=== PATIENT | male | born 1945 | race Caucasian/White ===

== ENCOUNTER 2023-03-29 12:55 | Outpatient (OUT) | payer MEDICARE, SELFPAY ==
--- NOTE | 2023-03-29 12:57 | VEIN_ITS ---
Patient Name: JASON PEARSON MR#: [id number] : 1945 Exam Date: 03/29/2023 Ordering Doctor: DR MARV CLANCY D.P.M. RADIOLOGY REPORT PROCEDURE: [facility] - OFFICE VISIT INITIAL COMPARISON: None. PROGRESS NOTES: [age] year old male who presents with a 20 year history of dilated bulging veins, leg swelling, muscle cramping, skin discoloration, and chronic lower left leg wound. The patient's left leg symptoms are worse than the right. There has been a progression of symptoms over time. This increases with prolonged leg dependency. The patient describes an improvement with rest, elevation, exercise, support stockings. The patient denies any signs and symptoms to suggest arterial ischemia. The patient describes a family history varicose veins. The patient has drinking and smoking history of: no alcohol consumption or recent tobacco use. Patient has a past medical history significant for hypertension. The patient denies a history of deep venous thrombus or pulmonary embolus. See separate history and physical for medication list. Prior vein stripping of proximal left great saphenous vein. Current use of compression stockings. After review of nurse notes, history and physical exam I discussed at length the pathophysiology of venous hypertension and possible treatments, therapies and strategies available. We discussed at length the importance of elevating the lower extremities above the level of the heart, increased physical activity and compression stocking use. Ultrasound venous reflux study performed today was discussed at length with the patient. The report demonstrates abnormally dilated and incompetent right great saphenous, right small saphenous, and left small saphenous veins. Numerous large branch saphenous varicosities arising from the above veins as well as the remaining mid and lower segment of the left great saphenous vein (prior vein stripping of proximal left great saphenous vein). Large incompetent drop press hand vein within lower left leg adjacent patient's chronic recently healed wound. Additional dilated and incompetent drop press hand vein within proximal left thigh giving rise to a large varicosity. PHYSICAL EXAM: The right leg demonstrates multiple large varicosities, a few spider veins, no ulceration, moderate edema, moderate skin discoloration. The left leg demonstrates multiple large varicosities, a few spider veins, recently healed chronic ulceration, moderate edema, moderate skin discoloration. Both thighs, legs and feet were symmetrically warm to the touch. Good posterior tibial and dorsalis pedis pulses were present bilaterally. VEIN/VC Facility EST Comprehensive IMPRESSION: 1. Bilateral lower extremity venous insufficiency 2. Bilateral lower extremity varicose veins 3. Bilateral lower extremity subcutaneous edema 4. No flow significant arterial disease 5. CEAP: C5, EC, AP, AR PLAN: 1. Continued use of compression stockings 2. Elevated legs and increased physical activity symptomatic relief 3. Endovenous laser ablation of right great saphenous, left small saphenous, and right small saphenous veins. 4. Endovenous laser ablation of lower left leg drop press hand vein(s) adjacent the chronic wound. 5. Microfoam chemical ablation of numerous large branch saphenous varicosities bilaterally including the remainder of the left great saphenous vein and its large branches. Nurse notes, history and physical were reviewed and confirmed, see attached forms. The nurse was present throughout the physical exam and consultation Dictated by: Moe Avery M.D. on 03/29/2023 at 14:53 Approved by: Moe Avery M.D. on 03/29/2023 at 15:00
--- NOTE | 2023-03-29 12:58 | VEIN_ITS ---
Patient Name: JASON PEARSON MR#: [id number] : 1945 Exam Date: 03/29/2023 Ordering Doctor: DR MARV CLANCY D.P.M. RADIOLOGY REPORT PROCEDURE: VC EXT VENOUS REFLUX CHINO LMTD COMPARISON: None. INDICATIONS: I83.813 Painful varicose veins of bilat lower extremities TECHNIQUE: Duplex imaging of the lower extremity to assess the deep and superficial venous system for the presence of deep or superficial venous incompetence and to document the location and severity of disease. The study includes evaluation of the great saphenous vein (GSV), anterior accessory saphenous vein (AASV) and small saphenous vein (SSV). Patient scanned in reverse Trendelenburg and standing. FINDINGS: RIGHT LOWER EXTREMITY: Saphenofemoral Junction Reflux: Yes 10.0mm 3.2 sec GSV: Diam (mm) Reflux/ Time (sec) Proximal Thigh 6.7 Yes 1.7 Mid Thigh 6.0 Yes 3.2 Distal Thigh 5.8 Yes 3.1 Prox Calf 3.3 Yes 1.0 Mid Calf 3.4 Yes 0.6 Saphenopopliteal Junction Reflux: 5.6mm Yes 2.9 SSV: Proximal Calf 5.6 Yes 1.9 Mid Calf 4.5 Yes 1.1 AASV: Proximal Thigh 2.9 No Mid Thigh 3.5 No Distal Thigh Thrombi: No acute or chronic thrombus visualized Compressibility: Normal Flow: Normal Preforator: Dist/med calf 3.0mm with 0s reflux. Tech Note: Incompetent GSV and SSV. Patent varicose vein prox/med calf 3.4mm with 1.1s reflux. Patent varicose vein mid/med thigh 3.1mm with 0.9s reflux. Patent varicose vein mid/med calf 3.0mm with 0s reflux. LEFT LOWER EXTREMITY: Saphenofemoral Junction Reflux: mm sec GSV: Diam (mm) Reflux/Time (sec) Proximal Thigh N/A Mid Thigh N/A Distal Thigh N/A Prox Calf 4.8 Yes 2.3 Mid Calf 4.9 Yes 1.6 Saphenopopliteal Junction Relux: 5.5 mm Yes 0.9 SSV: Proximal Calf 5.5 Yes 1.6 Mid Calf 3.8 No AASV: Proximal Thigh 3.3 No Mid Thigh 2.6 Distal Thigh Thrombi: No acute or chronic thrombus visualized Compressibility: Normal Flow: Reflux visualized CFV and FV Book Sorter: Dist/med calf 5.8mm with 1.8s reflux. Mid/med calf 3.3mm with 2.8s reflux. Mid/med thigh off of FV 5.0mm with 1.7s reflux. Tech Note: Incompetent GSV and SSV. GSV was previously stripped from groin to distal thigh. Patent varicose vein off of mid/med thigh perforators 8.2mm with 1.3s reflux. Patent varicose vein medial knee 7.3mm with 1.4s reflux. Patent prox/med calf 6.0mm with 0.8s reflux. CONCLUSION: 1. Abnormally dilated and incompetent right great saphenous, right small saphenous, and left small saphenous veins. 2. Large amount of markedly dilated an incompetent branch saphenous varicosities arising from the above veins as well as arising from the left great saphenous vein distal to the site of prior vein stripping within the proximal thigh. 3. Large, incompetent associate media director veins within distal left lower extremity adjacent the patient's recently healed chronic wound. Additional large incompetent associate media director vein within proximal left thigh giving rise to a large varicosity. Dictated by: Moe Avery M.D. on 03/29/2023 at 14:23 Approved by: Moe Avery M.D. on 03/29/2023 at 14:52
== END 2023-03-29 12:56 | disposition home or self-care (01) ==
PROVIDERS: PCP Podiatrist Foot & Ankle Surgery; Visit Provider Podiatrist Foot & Ankle Surgery
DX: I83.813 Varicose veins of bilateral lower extremities with pain (principal)
CPT/HCPCS: 93970; G0463

== ENCOUNTER 2023-06-14 12:25 | Outpatient (OUT) | payer MEDICARE, SELFPAY ==
--- OUTSIDE RECORDS SUMMARY | 2023-06-14 12:28 | XMS_ITS | CCD ---
Author Name Unknown Address [address] [place] [address] Organization [facility] Care Team Providers Care Machine Bobbin Winder Name Role Phone Sharonda Bah Primary Care Physician Dolvidhya, Mickey Gutiérrez Referring Unavailable Dolce, Mickey D Attending Unavailable Dolce, Mickey D Attending Unavailable Dolce, Mickey D Attending Unavailable Dolce, Mickey D Admitting Unavailable Dolce, Mickey Gutiérrez Referring Unavailable Dolce, Mickey Gutiérrez Attending Unavailable Dolce, Mickey Gutiérrez Attending Unavailable Dolce, Mickey D Attending Unavailable Dolce, Mickey D Attending Unavailable Dolce, Mickey D Attending Unavailable Dolce, Mickey D Attending Unavailable Dolce, Mickey Brock Attending Unavailable ZAHLERMARY Attending Unavailable Medications Current Medications Medication Drug Class(es) Dates Sig (Normalized) Sig (Original) Acetaminophen / oxyCODONE (16 sources) Opioid Agonist Start: 06-11-2020 Percocet 325 mg-5 mg Tab 1 tab(s), Oral, q6hr Pain 4-7, Refill(s) 0 Start Date: 06/11/20 Status: Ordered Start: 06-11-2020 Percocet 325 m g-5 mg Tab 2 tab(s), Oral, q6hr Pain 4-7, Refill(s) 0 Start Date: 06/11/20 Status: Ordered Start: 06-11-2020 Percocet 325 m g-5 mg Tab 1 tab(s), Oral, q6hr Pain 4-7, Refill(s) 0 Start Date: 06/11/20 Status: Ordered Aspir 81 (8 sources) Start: 08-01-2016 take 81 mg by mouth once daily Aspir 81 81 mg, Oral, Daily, Refills(s) 0 Start Date: 08/01/16 Status: Ordered lisinopril 20 mg oral tablet (8 sources) Angiotensin Converting Enzyme Inhibitor Start: 12-24-2011 take 20 mg by mouth once daily lisinopril 20 mg, Oral, Daily, Refills(s) 0, High blood pressure Start Date: 12/24/11 Status: Ordered Problems Active Problems Problem Classification Problem Date Documented Da te Episodic/Chronic Abdominal hernia (8 sources) Inguinal hernia 07-13-2013 Episodic Essential hypertension (8 sources) Hypertensive disorder 01-12-2013 Chronic Varicose veins of lower extremity (8 sources) Varicose veins of lower extremity 04-04-2013 Episodic Comment on above: left Past or Other Problems Problem Classification Problem Date Documented Da te Episodic/Chronic Unclassified (1 source) Exposure to 2019 novel coronavirus; Translations: [Contact with and (suspected) exposure to COVID19] Results Test Name Value Interpretation Reference Range Facility Outside Recordson 03-08-2023 Outside Records [id number] 288#1.00TIFF [facility] Nursing Note - Woundon 01-14 Nursing Note - Wound [id number] [id number] 407#2.00CD:127 [facility] Consent for Treatmenton 12-31 Consent for Treatment [id number] 3 [id number] DB#1.00CD:127 [facility] Multi-Wound Charton 01-12-20 23 Multi-Wound Chart [id number] 334#1.00CD:127 [facility] Nursing Assessment - Woundon 01-11-2023 Nursing Assessment - Wound [id number] [id number] 744#1.00CD:127 [facility] Physician Orderon 01-11-2023 Physician Order [id number] 140#1.00CD:127 [facility] Progress Note - Woundon 12-31 Progress Note - Wound 170.71.121.117.202 3 [id number] 251#1.00CD:127 [facility] Consent for Procedure/Surger yon 01-04-2023 Consent for Procedure/Surgery 149.45.122.15. [id number] 903#1.00CD:127 [facility] Consent for Treatmenton Consent for Treatment [id number] 3 [id number] B4#1.00CD:127 [facility] Physician Orderon 01-04-2023 Physician Order [id number] 539#1.00CD:127 [facility] Progress Note - Woundon Progress Note - Wound 170.71.121.117.202 3 [id number] 143#1.00CD:127 [facility] Progress Note - Woundon 12-02 Progress Note - Wound 170.71.121.117.202 3 [id number] 392#2.00CD:127 [facility] Consent for Treatmenton 12-01 Consent for Treatment [id number] 3 [id number] 55#1.00CD:127 [facility] Multi-Wound Charton 12-29-19 Multi-Wound Chart [id number] 285#1.00CD:127 [facility] Nursing Assessment - Woundon 12-28-2022 Nursing Assessment - Wound 170.71.924.951.8465 [id number] 632#1.00CD:127 [facility] Nursing Note - Woundon 12-28 Nursing Note - Wound 170.71.689.350.2007 [id number] 281#1.00CD:127 [facility] Physician Orderon 12-28-2022 Physician Order [id number] 330#1.00CD:127 [facility] Procedure - Woundon 12-29-19 23 Procedure - Wound [id number] [id number] 179#1.00CD:127 [facility] Consent for Treatmenton 12-01 Consent for Treatment [id number] 3 [id number] 4C#1.00CD:127 [facility] Multi-Wound Charton 12-22-19 Multi-Wound Chart [id number] [id number] 612#1.00CD:127 [facility] Nursing Assessment - Woundon 12-21-2022 Nursing Assessment - Wound 170.71.354.784.6992 [id number] 169#1.00CD:127 [facility] Nursing Note - Woundon 12-21 Nursing Note - Wound 170.71.540.794.0170 [id number] 553#1.00CD:127 [facility] Physician Orderon 12-21-2022 Physician Order [id number] 579#1.00CD:127 [facility] Procedure - Woundon 12-22-19 Procedure - Wound 170.71.769.489.7124 [id number] 549#1.00CD:127 [facility] Progress Note - Woundon 12-01 Progress Note - Wound 170.71.121.117.202 3 [id number] 894#1.00CD:127 [facility] Procedure - Woundon 12-18-19 Procedure - Wound 170.71.993.043.0877 [id number] 901#2.00CD:127 [facility] Nursing Note - Woundon 12-15 Nursing Note - Wound 170.71.915.026.3051 [id number] 779#2.00CD:127 [facility] Consent for Treatmenton 11-30 Consent for Treatment 159.140.128.34.202 3 [id number] 5A#1.00CD:127 [facility] Multi-Wound Charton 12-15-19 Multi-Wound Chart 170.71.939.860.8318 [id number] 645#1.00CD:127 [facility] Nursing Assessment - Woundon 12-14-2022 Nursing Assessment - Wound 170.71.918.993.7777 [id number] 942#1.00CD:127 [facility] Consent for Procedure/Surger yon 12-07-2022 Consent for Procedure/Surgery 149.45.122.15. [id number] 860#1.00CD:127 [facility] Consent for Treatmenton Consent for Treatment 159.140.128.34.202 3 [id number] D1#1.00CD:127 [facility] Multi-Wound Charton 12-08-19 Multi-Wound Chart 170.71.762.221.8544 [id number] 913#1.00CD:127 [facility] Nursing Assessment - Woundon 12-07-2022 Nursing Assessment - Wound 170.71.504.186.1646 [id number] 164#1.00CD:127 [facility] Nursing Note - Woundon 12-07 Nursing Note - Wound 170.71.500.774.3421 [id number] 674#1.00CD:127 [facility] Physician Orderon 12-07-2022 Physician Order [id number] 814#1.00CD:127 [facility] Procedure - Woundon 12-08-19 Procedure - Wound 170.71.775.846.5293 [id number] 670#1.00CD:127 [facility] Progress Note - Woundon Progress Note - Wound 170.71.121.117.202 3 [id number] 522#1.00CD:127 [facility] Multi-Wound Charton 12-01-19 Multi-Wound Chart 170.71.088.823.2696 [id number] 416#1.00CD:127 [facility] Nursing Note - Woundon 11-30 Nursing Note - Wound 170.71.723.280.7729 [id number] 741#1.00CD:127 [facility] Consent for Treatmenton -3 Consent for Treatment 159.140.128.36.202 3 [id number] 3B#1.00CD:127 [facility] Insurance Correspondenceon 0 11-29-2022 Insurance Correspondence [id number] 803#1.00CD:127 [facility] Physician Orderon 11-29-2022 Physician Order [id number] 461#1.00CD:127 [facility] Procedure - Woundon 11-30-19 Procedure - Wound 170.71.991.793.5369 [id number] 212#1.00CD:127 [facility] Nursing Note - Woundon 11-24 Nursing Note - Wound 170.71.312.241.4110 [id number] 966#2.00CD:127 [facility] Consent for Treatmenton 10-31 Consent for Treatment 159.140.128.34.202 3 [id number] F7#1.00CD:127 [facility] Multi-Wound Charton 11-24-19 Multi-Wound Chart 170.71.850.049.9137 [id number] 420#1.00CD:127 [facility] Nursing Assessment - Woundon 11-23-2022 Nursing Assessment - Wound 170.71.308.346.9341 [id number] 442#1.00CD:127 [facility] Nursing Note - Woundon 11-23 Nursing Note - Wound 170.71.955.307.5135 [id number] 795#1.00CD:127 [facility] Physician Orderon 11-23-2022 Physician Order [id number] 762#1.00CD:127 [facility] Procedure - Woundon 11-24-19 Procedure - Wound 170.71.905.798.6986 [id number] 707#1.00CD:127 [facility] Progress Note - Woundon 10-31 Progress Note - Wound 170.71.121.117.202 3 [id number] 390#1.00CD:127 [facility] Consent for Procedure/Surger yon 11-16-2022 Consent for Procedure/Surgery 149.45.122.13. [id number] 490#1.00CD:127 [facility] Consent for Treatmenton 10-30 Consent for Treatment 159.140.128.34.202 3 [id number] E7#1.00CD:127 [facility] Consent for Treatment 159.140.128.36.202 3 [id number] 86#1.00CD:127 [facility] Consent to Photographon 10-30 Consent to Photograph 149.45.122. 0 [id number] 407#1.00CD:127 [facility] Correspondence - Woundon Correspondence - Wound 149.45.122.13. [id number] 980#1.00CD:127 [facility] Correspondence - Wound 149.45.122.13. [id number] 831#1.00CD:127 [facility] Multi-Wound Charton 11-17-19 Multi-Wound Chart 170.71.787.731.3811 [id number] 692#1.00CD:127 [facility] Nursing Assessment - Woundon 11-16-2022 Nursing Assessment - Wound 170.71.116.966.6882 [id number] 509#1.00CD:127 [facility] Nursing Note - Woundon 11-16 Nursing Note - Wound 149.45.122.13.74410 [id number] 187#1.00CD:127 [facility] Physician Orderon 11-16-2022 Physician Order [id number] 726#1.00CD:127 [facility] Physician Order [id number] C1#1.00CD:127 [facility] Procedure - Woundon 11-17-19 Procedure - Wound 170.71.061.989.7955 [id number] 478#1.00CD:127 [facility] Progress Note - Woundon 10-30 Progress Note - Wound 170.71.121.117.202 3 [id number] 242#1.00CD:127 [facility] US LE Venous Duplex Lefton 0 11-16-2022 US LE Venous Duplex Left Exam Date/Time: 11/16/2022 16:02 EDT Reason for Exam: CLOT IN LT LEG Report IMPRESSION: NO EVIDENCE OF VENOUS THROMBOSIS INVOLVING VISUALIZED DEEP VEINS OF THE LEFT LEG. CLINICAL HISTORY: CLOT IN LT LEG COMMENT: On the left, the greater saphenous vein, common femoral vein, deep femoral vein, femoral vein, and popliteal vein demonstrate spontaneous phasic venous flow, with augmentation, competence, non-pulsatility, and compressibility every 2 cm. The left posterior tibial vein compresses. The peroneal vein is not identified. The contralateral right common femoral vein demonstrates spontaneous phasic venous flow. There are prominent lymph nodes in the left groin measuring up to 2.4 x 1.1 x 3.2 cm. Ordering Provider: Mickey Robles FINAL REPORT Dictated: 11/16/2022 5:08 pm Renan Tavares MD, V. Signed (Electronic Signature): 11/16/2022 5:08 pm Signed by: Renan Tavares MD, V. Transcribed by: RACHEL Technologist: QUE [facility] Reference Laboratory Testing Ordered By: [facility] [employer] on 05-20-2021 SARS-CoV-2 (COVID-19) RNA DALILA+probe Ql (Resp) Not detected Invalid Interpretation Code Not Detected [facility] [employer] Comment on above: Result Comment: This nucleic acid amplification test was developed and its performance characteristics determined by [employer]. Nucleic acid amplification tests include RT-PCR and TMA. This test has not been FDA cleared or approved. This test has been authorized by FDA under an Emergency Use Authorization (EUA). This test is only authorized for the duration of time the declaration that circumstances exist justifying the authorization of the emergency use of in vitro diagnostic tests for detection of SARS-CoV-2 virus and/or diagnosis of COVID-19 infection under section 564(b)(1) of the Act, 21 U.S.C. 360bbb-3(b) (1), unless the authorization is terminated or revoked sooner. When diagnostic testing is negative, the possibility of a false negative result should be considered in the context of a patient's recent exposures and the presence of clinical signs and symptoms consistent with COVID-19. An individual without symptoms of COVID-19 and who is not shedding SARS-CoV-2 virus would expect to have a negative (not detected) result in this assay. Performed at: [address] [id number] PhD Rosi Peacock Encounters Encounter Date Encounter Type Care Provider Facility Start: 05-23-2023 End: 05-23-2023 ambulatory MARY ARMENDARIZ Not Available Start: 01-11-2023 End: 01-12-2023 ambulatory Mickey Robles Facility:[facility] Start: 01-11-2023 End: 01-11-2023 Patient encounter procedure Mickey Robles [facility] Start: 01-04-2023 End: 01-05-2023 ambulatory Mickey Robles Facility:[facility] Start: 01-04-2023 End: 01-04-2023 Patient encounter procedure Mickey Robles [facility] Start: 12-28-2022 End: 12-29-2022 ambulatory Mickey Robles Facility:[facility] Start: 12-21-2022 End: 12-22-2022 ambulatory Mickey Robles Facility:[facility] Start: 12-14-2022 End: 12-15-2022 ambulatory Mickey Robles Facility:[facility] Start: 12-14-2022 End: 12-14-2022 Patient encounter procedure Mickey Robles [facility] Start: 12-07-2022 End: 12-08-2022 ambulatory Mickey Robles Facility:[facility] Start: 12-07-2022 End: 12-07-2022 Patient encounter procedure Mickey Robles [facility] Start: 11-29-2022 End: 11-30-2022 ambulatory Mickey Robles Facility:[facility] Start: 11-29-2022 End: 11-29-2022 Patient encounter procedure Mickey Robles [facility] Start: 11-23-2022 End: 11-24-2022 ambulatory Mickey Robles Facility:[facility] Start: 11-16-2022 End: 11-17-2022 ambulatory Mickey Robles Facility:[facility] Start: 11-16-2022 End: 11-16-2022 Patient encounter procedure Mickey Robles [facility] Start: 11-16-2022 End: 11-17-2022 ambulatory Mickey Robles Facility:[facility] Start: 11-16-2022 End: 11-16-2022 Patient encounter procedure Mickey Robles [facility] Start: 05-20-2021 End: 08-18-2021 Patient encounter procedure Sharonda Bah [facility] Procedures Date Procedure Procedure Detail Performing Clinician Start: 04-13-2013 left vein stripping 1 S karie Bah Comment on above: 1. ligation and stri pping of the left greater saphenous vein to a level below the knee 2. stab phlebectomy in mulitple varicose veins, left lower extremity, total of 25 incisions Start: 01-23-2013 left inguinial herni a with mesh plug 2 Sharonda Bah Comment on above: 01/23/2013 Cataract extraction and insertion of intraocular lens Sharonda Bah Comment on above: bilateral H/O: surgery History of detac hed retina repair( Confirmed ) 1 Sharonda Bah Comment on above: LEFT EYE RETINA DETACHMENT RE PAIR 4 Sharonda Bah Comment on above: LEFT EYE Payers Date Payer Category Payer Unknown [id number] 2020 Unknown [id number] 1944 Unknown [id number] 2.16.8 [id number] 1944 Unknown [id number] 2.16.8 [id number] 1944 Unknown [id number] 2.16.8 [id number] 1944 Unknown [id number] 2.16.8 [id number] 1944 Unknown [id number] 2.16.8 [id number] 1944 Unknown [id number] 2.16.8 [id number] 1944 Unknown [id number] 2.16.8 [id number] 1944 Unknown [id number] 2.16.8 [id number] 1944 Unknown [id number] 2.16.8 [id number] 1944 Unknown [id number] 2.16.8 [id number] 1944 Unknown [id number] 2.16.84 [id number] Social History Date Type Detail Facility Tobacco smoking status [facility] Sex Assigned At Male [facility] Tobacco smoking status No Smoking Status Entered [facility] Medical Equipment Procedure Code Equipment Code Equipment Origin al Text Equipment Identifier Dates FDA Start: 06-08-2020 FDA Start: 06-08-2020 FDA Start: 06-08-2020 FDA Start: 06-08-2020 FDA Start: 06-08-2020 FDA Start: 06-08-2020 FDA Start: 06-08-2020 FDA Start: 06-08-2020 FDA Start: 06-08-2020 FDA Start: 06-08-2020 FDA Start: 06-08-2020 ANKLE FRACTURE O RIF Cochran DO, Demetrio T 06/08/20 Unknown Ankle R FDA Start: 06-08-2020 ANKLE FRACTURE O RIF Cochran DO, Demetrio T 06/08/20 Unknown Ankle R FDA Start: 06-08-2020 ANKLE FRACTURE O RIF Cochran DO, Demetrio T 06/08/20 Unknown Ankle R FDA Start: 06-08-2020 ANKLE FRACTURE O RIF Cochran DO, Demetrio T 06/08/20 Unknown Ankle R FDA Start: 06-08-2020 ANKLE FRACTURE O RIF Cochran DO, Demetrio T 06/08/20 Unknown Ankle R FDA Start: 06-08-2020 ANKLE FRACTURE O RIF Cochran DO, Demetrio T 06/08/20 Unknown Ankle R FDA Start: 06-08-2020 ANKLE FRACTURE O RIF Cochran DO, Demetrio T 06/08/20 Unknown Ankle R FDA Start: 06-08-2020 ANKLE FRACTURE O RIF Cochran DO, Demetrio T 06/08/20 Unknown Ankle R FDA Start: 06-08-2020 ANKLE FRACTURE O RIF Cochran DO, Demetrio T 06/08/20 Unknown Ankle R FDA Start: 06-08-2020 ANKLE FRACTURE O RIF Cochran DO, Demetrio T 06/08/20 Unknown Ankle R FDA Start: 06-08-2020 ANKLE FRACTURE O RIF Cochran DO, Demetrio T 06/08/20 Unknown Ankle R FDA Start: 06-08-2020 ANKLE FRACTURE O RIF Cochran DO, Demetrio T 06/08/20 Unknown Ankle R FDA Start: 06-08-2020 ANKLE FRACTURE O RIF Cochran DO, Demetrio T 06/08/20 Unknown Ankle R FDA Start: 06-08-2020 ANKLE FRACTURE O RIF Cochran DO, Demetrio T 06/08/20 Unknown Ankle R FDA Start: 06-08-2020 ANKLE FRACTURE O RIF Cochran DO, Demetrio T 06/08/20 Unknown Ankle R FDA Start: 06-08-2020 ANKLE FRACTURE O RIF Cochran DO, Demetrio T 06/08/20 Unknown Ankle R FDA Start: 06-08-2020 ANKLE FRACTURE O RIF Cochran DO, Demetrio T 06/08/20 Unknown Ankle R FDA Start: 06-08-2020 ANKLE FRACTURE O RIF Cochran DO, Demetrio T 06/08/20 Unknown Ankle R FDA Start: 06-08-2020 ANKLE FRACTURE O RIF Cochran DO, Demetrio T 06/08/20 Unknown Ankle R FDA Start: 06-08-2020 ANKLE FRACTURE O RIF Cochran DO, Demetrio T 06/08/20 Unknown Ankle R FDA Start: 06-08-2020 ANKLE FRACTURE O RIF Cochran DO, Demetrio T 06/08/20 Unknown Ankle R FDA Start: 06-08-2020 ANKLE FRACTURE O RIF Cochran DO, Demetrio T 06/08/20 Unknown Ankle R FDA Start: 06-08-2020 ANKLE FRACTURE O RIF Cochran DO, Demetrio T 06/08/20 Unknown Ankle R FDA Start: 06-08-2020 ANKLE FRACTURE O RIF Cochran DO, Demetrio T 06/08/20 Unknown Ankle R FDA Start: 06-08-2020 ANKLE FRACTURE O RIF Cochran DO, Demetrio T 06/08/20 Unknown Ankle R FDA Start: 06-08-2020 ANKLE FRACTURE O RIF Cochran DO, Demetrio T 06/08/20 Unknown Ankle R FDA Start: 06-08-2020 ANKLE FRACTURE O RIF Cochran DO, Demetrio T 06/08/20 Unknown Ankle R FDA Start: 06-08-2020 ANKLE FRACTURE O RIF Cochran DO, Demetrio T 06/08/20 Unknown Ankle R FDA Start: 06-08-2020 ANKLE FRACTURE O RIF Cochran DO, Demetrio T 06/08/20 Unknown Ankle R FDA Start: 06-08-2020 ANKLE FRACTURE O RIF Cochran DO, Demetrio T 06/08/20 Unknown Ankle R FDA Start: 06-08-2020 ANKLE FRACTURE O RIF Cochran DO, Demetrio T 06/08/20 Unknown Ankle R FDA Start: 06-08-2020 ANKLE FRACTURE O RIF Cochran DO, Demetrio T 06/08/20 Unknown Ankle R FDA Start: 06-08-2020 ANKLE FRACTURE O RIF Cochran DO, Demetrio T 06/08/20 Unknown Ankle R FDA Start: 06-08-2020 ANKLE FRACTURE O RIF Cochran DO, Demetrio T 06/08/20 Unknown Ankle R FDA Start: 06-08-2020 ANKLE FRACTURE O RIF Cochran DO, Demetrio T 06/08/20 Unknown Ankle R FDA Start: 06-08-2020 ANKLE FRACTURE O RIF Cochran DO, Demetrio T 06/08/20 Unknown Ankle R FDA Start: 06-08-2020 ANKLE FRACTURE O RIF Cochran DO, Demetrio T 06/08/20 Unknown Ankle R FDA Start: 06-08-2020 ANKLE FRACTURE O RIF Cochran DO, Demetrio T 06/08/20 Unknown Ankle R FDA Start: 06-08-2020 ANKLE FRACTURE O RIF Cochran DO, Demetrio T 06/08/20 Unknown Ankle R FDA Start: 06-08-2020 ANKLE FRACTURE O RIF Cochran DO, Demetrio T 06/08/20 Unknown Ankle R FDA Start: 06-08-2020 ANKLE FRACTURE O RIF Cochran DO, Demetrio T 06/08/20 Unknown Ankle R FDA Start: 06-08-2020 ANKLE FRACTURE O RIF Cochran DO, Demetrio T 06/08/20 Unknown Ankle R FDA Start: 06-08-2020 ANKLE FRACTURE O RIF Cochran DO, Demetrio T 06/08/20 Unknown Ankle R FDA Start: 06-08-2020 ANKLE FRACTURE O RIF Cochran DO, Demetrio T 06/08/20 Unknown Ankle R FDA Start: 06-08-2020 ANKLE FRACTURE O RIF Cochran DO, Demetrio T 06/08/20 Unknown Ankle R FDA Start: 06-08-2020 ANKLE FRACTURE O RIF Cochran DO, Demetrio T 06/08/20 Unknown Ankle R FDA Start: 06-08-2020 ANKLE FRACTURE O RIF Cochran DO, Demetrio T 06/08/20 Unknown Ankle R FDA Start: 06-08-2020 ANKLE FRACTURE O RIF Cochran DO, Demetrio T 06/08/20 Unknown Ankle R FDA Start: 06-08-2020 ANKLE FRACTURE O RIF Cochran DO, Demetrio T 06/08/20 Unknown Ankle R FDA Start: 06-08-2020 ANKLE FRACTURE O RIF Cochran DO, Demetrio T 06/08/20 Unknown Ankle R FDA Start: 06-08-2020 ANKLE FRACTURE O RIF Cochran DO, Demetrio T 06/08/20 Unknown Ankle R FDA Start: 06-08-2020 ANKLE FRACTURE O RIF Cochran DO, Demetrio T 06/08/20 Unknown Ankle R FDA Start: 06-08-2020 ANKLE FRACTURE O RIF Cochran DO, Demetrio T 06/08/20 Unknown Ankle R FDA Start: 06-08-2020 ANKLE FRACTURE O RIF Cochran DO, Demetrio T 06/08/20 Unknown Ankle R FDA Start: 06-08-2020 ANKLE FRACTURE O RIF Cochran DO, Demetrio T 06/08/20 Unknown Ankle R FDA Start: 06-08-2020 ANKLE FRACTURE O RIF Cochran DO, Demetrio T 06/08/20 Unknown Ankle R FDA Start: 06-08-2020 ANKLE FRACTURE O RIF Cochran DO, Demetrio T 06/08/20 Unknown Ankle R FDA Start: 06-08-2020 ANKLE FRACTURE O RIF Cochran DO, Demetrio T 06/08/20 Unknown Ankle R FDA Start: 06-08-2020 ANKLE FRACTURE O RIF Cochran DO, Demetrio T 06/08/20 Unknown Ankle R FDA Start: 06-08-2020 ANKLE FRACTURE O RIF Cochran DO, Demetrio T 06/08/20 Unknown Ankle R FDA Start: 06-08-2020 ANKLE FRACTURE O RIF Cochran DO, Demetrio T 06/08/20 Unknown Ankle R FDA Start: 06-08-2020 ANKLE FRACTURE O RIF Cochran DO, Demetrio T 06/08/20 Unknown Ankle R FDA Start: 06-08-2020 ANKLE FRACTURE O RIF Cochran DO, Demetrio T 06/08/20 Unknown Ankle R FDA Start: 06-08-2020 ANKLE FRACTURE O RIF Cochran DO, Demetrio T 06/08/20 Unknown Ankle R FDA Start: 06-08-2020 ANKLE FRACTURE O RIF Cochran DO, Demetrio T 06/08/20 Unknown Ankle R FDA Start: 06-08-2020 ANKLE FRACTURE O RIF Cochran DO, Demetrio T 06/08/20 Unknown Ankle R FDA Start: 06-08-2020 ANKLE FRACTURE O RIF Cochran DO, Demetrio T 06/08/20 Unknown Ankle R FDA Start: 06-08-2020 ANKLE FRACTURE O RIF Cochran DO, Demetrio T 06/08/20 Unknown Ankle R FDA Start: 06-08-2020 ANKLE FRACTURE O RIF Cochran DO, Demetrio T 06/08/20 Unknown Ankle R FDA Start: 06-08-2020 ANKLE FRACTURE O RIF Cochran DO, Demetrio T 06/08/20 Unknown Ankle R FDA Start: 06-08-2020 ANKLE FRACTURE O RIF Cochran DO, Demetrio T 06/08/20 Unknown Ankle R FDA Start: 06-08-2020 ANKLE FRACTURE O RIF Cochran DO, Demetrio T 06/08/20 Unknown Ankle R FDA Start: 06-08-2020 ANKLE FRACTURE O RIF Cochran DO, Demetrio T 06/08/20 Unknown Ankle R FDA Start: 06-08-2020 ANKLE FRACTURE O RIF Cochran DO, Demetrio T 06/08/20 Unknown Ankle R FDA Start: 06-08-2020 ANKLE FRACTURE O RIF Cochran DO, Demetrio T 06/08/20 Unknown Ankle R FDA Start: 06-08-2020 ANKLE FRACTURE O RIF Cochran DO, Demetrio T 06/08/20 Unknown Ankle R FDA Start: 06-08-2020 ANKLE FRACTURE O RIF Cochran DO, Demetrio T 06/08/20 Unknown Ankle R FDA Start: 06-08-2020 Clinical Note 11-19-2022 Note Date & Type Note Facility 11-19-2022 Note Microbiology PROCEDURE: Wound Culture [R1] SOURCE: Wound BODY SITE: Foot L COLLECTED DATE/TIME: 11/16/2022 16:24 EDT RECEIVED DATE/TIME: 11/16/2022 16:29 EDT START DATE/TIME: 11/16/2022 16:29 EDT FREE TEXT SOURCE: left foot Dolce DPM, Mickey D Dolce DPM, Mickey D FINAL REPORTS Final Report [] Verified Date/Time: 11/19/2022 10:42 EDT 2+ Staphylococcus aureus Scant growth of Pantoea agglomerans group STAINS Gram Stain Report [] Verified Date/Time: 11/17/2022 11:42 EDT Occasional White Blood Cells Occasional epithelial cells 2+ Gram Positive Cocci SUSCEPTIBILITY RESULTS LEGEND: S=Susceptible, N/R=Not Reported, Blank=Data not available, or drug not advisable or tested, I=Intermediate, ESBL=Extended spectrum beta-lactamase, R=Resistant, TFG=Thymidine-dependent strain, ABDIRAHMAN=Beta-lactamase positive, FRAN=mcg/m;(mg/L), S*=Predicted susceptible interp, R*=Predicted resistant interp SA Entagg Antibiotic FRAN Dilutn FRAN Interp FRAN Dilutn FRAN Interp Amikacin <=16 S Amoxicillin/ <=4/2 S Clavulanate Ampicillin <=2 ABDIRAHMAN <=8 S Ampicillin/ <=8/4 S <=8/4 S Sulbactam Azithromycin <=2 S Aztreonam <=4 S Cefazolin <=8 S <=2 S Cefepime <=2 S Cefoxitin <=8 S Ceftaroline <=0.5 S Ceftazidime <=1 S Ceftriaxone <=1 S Ciprofloxacin <=1 S <=1 S Clindamycin <=0.25 S Daptomycin <=1 S Ertapenem <=0.5 S Erythromycin <=0.5 S Gentamicin <=4 S <=4 S Levofloxacin <=1 S <=2 S Linezolid <=2 S Meropenem <=1 S Nitrofurantoin <=32 <=32 Oxacillin <=0.25 S Penicillin 2 ABDIRAHMAN Piperacillin/ <=16 S Tazobactam Microbiology SUSCEPTIBILITY RESULTS LEGEND: S=Susceptible, N/R=Not Reported, Blank=Data not available, or drug not advisable or tested, I=Intermediate, ESBL=Extended spectrum beta-lactamase, R=Resistant, TFG=Thymidine-dependent strain, ABDIRAHMAN=Beta-lactamase positive, FRAN=mcg/m;(mg/L), S*=Predicted susceptible interp, R*=Predicted resistant interp SA Entagg Antibiotic FRAN Dilutn FRAN Interp FRAN Dilutn FRAN Interp Rifampin <=1 S Tetracycline <=4 S <=4 S Tigecycline <=2 S Tobramycin <=4 S Trimethoprim/ <=0.5/9.5 S <=2/38 S Sulfa Vancomycin 1 S Performing Locations R1: This test was performed at: [facility], [address] [place] [address], [facility] , , [facility] Comment on above: Performed By: #### [id number] ####[facility] [address] [place] [address] Evaluation + Plan note Note Date & Type Note Facility Evaluation + Plan note No data available for this section [facility] Evaluation + Plan note Note Date & Type Note Facility Evaluation + Plan note Future Appointments Appointment Date:11/23/2022 02:00:00 PM Scheduled Provider:Mickey Robles DPM [facility] Appointment Type:WC Follow Up Visit (FT) [facility] Evaluation + Plan note Note Date & Type Note Facility Evaluation + Plan note Future Appointments Appointment Date:11/23/2022 02:00:00 PM Scheduled Provider:Mickey Robles DPM [facility] Appointment Type:WC Follow Up Visit (FT) Diagnostic Tests PendingWound Culture 11/16/22 [facility] Evaluation + Plan note Note Date & Type Note Facility Evaluation + Plan note Future Appointments Appointment Date:12/07/2022 02:00:00 PM Scheduled Provider:Mickey Robles DPM [facility] Appointment Type:WC Follow Up Visit (FT) Appointment Date:12/07/2022 02:15:00 PM Scheduled Provider:Mickey Robles DPM [facility] Appointment Type:WC Follow Up Visit (FT) [facility] Evaluation + Plan note Note Date & Type Note Facility Evaluation + Plan note Future Appointments Appointment Date:12/13/2022 09:30:00 AM Scheduled Provider: [facility] Appointment Type:WC Assessment (FT) Appointment Date:12/21/2022 02:30:00 PM Scheduled Provider:Mickey Robles DPM [facility] Appointment Type:WC Follow Up Visit (FT) [facility] Evaluation + Plan note Note Date & Type Note Facility Evaluation + Plan note Future Appointments Appointment Date:12/21/2022 02:30:00 PM Scheduled Provider:Mickey Robles DPM [facility] Appointment Type:WC Follow Up Visit (FT) [facility] Evaluation + Plan note Note Date & Type Note Facility Evaluation + Plan note Future Appointments Appointment Date:01/11/2023 03:00:00 PM Scheduled Provider:Mickey Robles DPM [facility] Appointment Type:WC Follow Up Visit (FT) [facility] Discharge instructions Note Date & Type Note Facility Hospital Discharge instructions No data available for this section [facility] Progress note Note Date & Type Note Facility Progress note No data available for this section [facility] Summary Purpose Family History No Family History Records FoundNo Family History Records Found Advance Directives No Advanced Directives Records FoundNo Advanced Directives Records Found Additional Source Comments Patient Care team informatio n (unrecognized section and content) Personnel Name: Sharonda Bah MD Address: Address: [address] [place] [address] Personnel Name: Sharonda Bah MD Address: Address: [address] [place] [address] Personnel Name: Sharonda Bah MD Address: Address: [address] [place] [address] Personnel Name: Sharonda Bah MD Address: Address: [address] [place] [address]. [address] [place] [address] Personnel Name: Sharonda Bah MD Address: Address: [address] [place] [address]. [address] [place] [address] Personnel Name: Sharonda Bah MD Address: Address: [address] [place] [address]. [address] Personnel Name: Sharonda Bah MD Address: Address: [address] [place] [address]. [address] (unrecognized sect ion and content) No Status Records FoundNo Status Records Found INFORMATION SOURCE (unrecogn ized section and content) DATE CREATED AUTHOR 03/09/2023 [facility] DATE CREATED AUTHOR CORRY MOLINA 05/23/2023 [facility] EPIC FOR RECORDS PERTAINING TO PATIENTS WHO ARE OR HAVE BEEN ENROLLED IN A CHEMICAL DEPENDENCY/SUBSTANCEABUSE PROGRAM, SOME INFORMATION MAY BE OMITTED. This clinical summary was aggregated from multiple sources. Caution should be exercised in using it in the provision of clinical care. This summary normalizes information from multiple sources, and as a consequence, information in this document may materially change the coding, format and clinical context of patient data. In addition, data may be omitted in some cases. CLINICAL DECISIONS SHOULD BE BASED ON THE PRIMARY CLINICAL RECORDS. [facility]. provides no warranty or guarantee of the accuracy or completeness of information in this document.
--- NOTE | 2023-06-14 13:11 | VEIN_ITS ---
The [address] [address] Patient Name: JASON PEARSON MRN: [id number] date: 1945 Sex: M Assigned Patient Location: Current Patient Location: Accession/Order Number: [id number] Exam Date: 06/14/2023 13:15 Report Date: 06/14/2023 14:12 At the request of: DANIEL NAVA Procedure: VC Endovenous Ablation 1VeinLT EXAMINATION: VC Endovenous Ablation 1Vein left great saphenous vein HISTORY: I83.813 Bilateral painful varicose veins COMPARISON: No relevant comparison available. TECHNIQUE: The risks and benefits of the procedure had been previously discussed, and were rediscussed at length. Informed written consent was obtained. Bernadine Gentile and Marito Damico assisted. Time out procedure was performed. The left lower extremity was prepared and draped in the usual sterile fashion to allow knee flexion in the sterile field. Duplex ultrasound probe was draped in a sterile cover, sterile transmission gel was used. Venous mapping was performed with the areas of dilation and large tributaries marked. The total length was 28 cm from the entry 4 cm above the medial malleolus to the level of the knee, the vein above this area was occluded, multiple marginal branch saphenous tributaries arose from the mid to distal great saphenous vein and care was taken to go below the last branch tributary just above the ankle. The diameter of the greater saphenous vein ranged from 5-7 mm. A 30 gauge needle and 1% buffered lidocaine was used to anesthetize the entry site. A 4 mm incision was made with a scalpel and the saphenous vein was entered percutaneously under direct ultrasound guidance with a micropuncture set, 2 sticks were successful in gaining access. A micro-guide wire was inserted and the needle removed. A micro-set including a dilator was inserted over the microwire and the needle and dilator were removed. A 0.018 guide wire was inserted through the micro-set and threaded through the saphenous vein to the saphenofemoral junction. The dilator was removed and an introducer sheath was inserted over the wire until the end of the sheath entered the saphenofemoral junction. The dilator and wire were removed and the 600 micron fiber was introduced and placed and positioned so that it extended beyond the sheath and was 3 cm peripheral to the saphenofemoral femoral junction. Final position of the fiber was determined by ultrasound guidance and duplex imaging. Tumescent anesthetic was delivered by ultrasound guidance. 125 cc of fluid was delivered along the entire course of the saphenous vein. The solution consisted of 1000 cc of normal saline with 40 mL of 1% lidocaine and 20 mL of sodium bicarbonate. A final positioning check was made. The energy source was turned on by means of the foot pedal and the fiber and sheath were withdrawn. The total number of Joules delivered was 1352. The laser was active for 169 seconds under continuous pulse, average laser use of 8 J. Laser start time 13:55, 06/14/2023 . Laser stop time 13:59, 06/14/2023 . A duplex ultrasound revealed compressibility and flow at the saphenofemoral junction immediately after the procedure. Hemostasis at the access site was achieved. The skin incision of the saphenous vein was closed with a 4 x 4. A compression stocking was applied. Postop instructions were given. A follow up appointment was recommended and scheduled. The patient tolerated the procedure well and was discharged in good condition . VEIN/VC Endovenous Ablation 1VeinLT IMPRESSION: Technically successful endovenous laser ablation of the left great saphenous Electronically authenticated by: DANIEL NAVA Date: 06/14/2023 14:12
[2023-06-14] MEDS: LIDOCAINE HCL 1% 100 MG/10 ML MDV INJ (13:33)
[2023-06-14] MEDS: 0.9 % SODIUM CHLORIDE 500 ML, LIDOCAINE HCL 20 ML, SODIUM BICARBONATE 10 MEQ INJ (13:34)
== END 2023-06-14 12:26 | disposition home or self-care (01) ==
LOC: VC 12:25
PROVIDERS: PCP Radiology Diagnostic Radiology; Visit Provider Radiology Diagnostic Radiology
DX: I83.813 Varicose veins of bilateral lower extremities with pain (principal)
CPT/HCPCS: 36478

== ENCOUNTER 2023-06-22 14:11 | Outpatient (OUT) | payer MEDICARE, SELFPAY ==
--- NOTE | 2023-06-22 14:13 | VEIN_ITS ---
Patient Name: JASON PEARSON MR#: [id number] : 1945 Exam Date: 06/22/2023 Ordering Doctor: DR DANIEL NAVA M.D. RADIOLOGY REPORT PROCEDURE: VC EXT VENOUS LT LIMITED COMPARISON: None. INDICATIONS: Phlebitis of superficial veins of lt lower extremity I80.02 TECHNIQUE: Lower extremity mckinney scale and Duplex Doppler evaluation of the deep venous system from the inguinal ligament through the calf veins. FINDINGS: REGION: Left lower extremity. THROMBI: Negative for DVT. COMPRESSIBILITY: Non-compressible segments corresponding to thrombus FLOW: Areas of no flow corresponding to thrombus OTHER: Proximal portion of GSV is closed off due to previous stripping. Lower leg GSV is seen with heat induced thrombus prox lower leg to distal lower leg. CONCLUSION: 1. Successful post ablation occlusion of left great saphenous vein. Dictated by: Moe Avery M.D. on 06/22/2023 at 15:27 Approved by: Moe Avery M.D. on 06/22/2023 at 15:27
--- NOTE | 2023-06-22 14:13 | VEIN_ITS ---
Patient Name: JASON PEARSON MR#: [id number] : 1945 Exam Date: 06/22/2023 Ordering Doctor: DR DANIEL NAVA M.D. RADIOLOGY REPORT PROCEDURE: [facility] - OFFICE VISIT FOLLOW UP COMPARISON: None. PROGRESS NOTES: The patient reports improvement in leg symptoms. There has been interval reduction in varicosities. The patient has followed our recommendations to walk 20-30 minutes once or twice per day since the procedure. Physical exam demonstrates new skin ulceration medial distal lower leg with central small focus of pus which was expressed and cleaned. Persistent varicosities are identified along the legs bilaterally. Review of the ultrasound performed the same day demonstrates occlusive thrombus extending throughout the treated vein(s), see separate report, consistent with a successful ablation. No thrombus extending into or beyond the saphenofemoral junction. The patient expressed a desire to proceed with treatment of remaining incompetent varicosities. The patient was informed that treatment was a process and would require several procedures/sessions. [facility] IM[facility]: 1. Successful ablation of the left great saphenous vein(s). 2. Persistent varicose veins and lower extremity symptoms. 3. New skin ulceration in area of marked chronic skin changes with small central focus of infection unrelated to recent procedure. PLAN: 1. Patient will be placed on 500 mg Keflex 2 times per day for 10 days 2. 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 Nurse notes, history and physical were reviewed and confirmed, see attached forms. The nurse was present throughout the physical exam and consultation Dictated by: Moe Avery M.D. on 06/22/2023 at 15:28 Approved by: Moe Avery M.D. on 06/22/2023 at 15:30
--- OUTSIDE RECORDS SUMMARY | 2023-06-22 14:16 | XMS_ITS | CCD ---
Author Name Unknown Address [address] [place] [address] Organization [facility] Care Team Providers Care Contract Associate Name Role Phone Sharonda Bah Primary Care Physician Dolvidhya, Mickey Gutiérrez Referring Unavailable Dolce, Mickey D Attending Unavailable Dolce, Mickey D Attending Unavailable Dolce, Mickey D Attending Unavailable Dolce, Mickey Brock Admitting Unavailable Dolce, Mickey Gutiérrez Referring Unavailable [...] Range Facility Outside Recordson 03-08-2023 Outside Records [id number] 288#1.00TIFF [facility] Nursing Note - Woundon 01-14 Nursing Note - Wound 170.71.601.329.8460 [id number] 407#2.00CD:127 [facility] Consent for Treatmenton 12-31 Consent for Treatment 159.140.128.36.202 3 [id number] DB#1.00CD:127 [facility] Multi-Wound Charton 01-12-20 23 Multi-Wound Chart 170.71.458.351.3921 [id number] 334#1.00CD:127 [facility] Nursing Assessment - Woundon 01-11-2023 Nursing Assessment - Wound 170.71.707.195.8397 [id number] 744#1.00CD:127 [facility] Physician Orderon 01-11-2023 Physician Order 170.71.849.051.8462 [id number] 140#1.00CD:127 [facility] Progress Note - Woundon 12-31 Progress Note - Wound 170.71.121.117.202 3 [id number] 251#1.00CD:127 [facility] Consent for Procedure/Surger yon 01-04-2023 Consent for Procedure/Surgery 149.45.122.15. [id number] 903#1.00CD:127 [facility] Consent for Treatmenton Consent for Treatment 159.140.128.36.202 3 [id number] B4#1.00CD:127 [facility] Physician Orderon 01-04-2023 Physician Order [id number] 539#1.00CD:127 [facility] Progress Note - Woundon Progress Note - Wound 170.71.121.117.202 3 [id number] 143#1.00CD:127 [facility] Progress Note - Woundon 12-02 Progress Note - Wound 170.71.121.117.202 3 [id number] 392#2.00CD:127 [facility] Consent for Treatmenton 12-01 Consent for Treatment 159.140.128.34.202 3 [id number] 55#1.00CD:127 [facility] Multi-Wound Charton 12-29-19 Multi-Wound Chart 170.71.428.851.7157 [id number] 285#1.00CD:127 [facility] Nursing Assessment - Woundon 12-28-2022 Nursing Assessment - Wound 170.71.865.148.4224 [id number] 632#1.00CD:127 [facility] Nursing Note - Woundon 12-28 Nursing Note - Wound 170.71.456.881.8078 [id number] 281#1.00CD:127 [facility] Physician Orderon 12-28-2022 Physician Order [id number] 330#1.00CD:127 [facility] Procedure - Woundon 12-29-19 23 Procedure - Wound 170.71.674.571.4067 [id number] 179#1.00CD:127 [facility] Consent for Treatmenton 12-01 Consent for Treatment 159.140.128.36.202 3 [id number] 4C#1.00CD:127 [facility] Multi-Wound Charton 12-22-19 Multi-Wound Chart 170.71.988.266.8071 [id number] 612#1.00CD:127 [facility] Nursing Assessment - Woundon 12-21-2022 Nursing Assessment - Wound 170.71.025.207.9535 [id number] 169#1.00CD:127 [facility] Nursing Note - Woundon 12-21 Nursing Note - Wound 170.71.743.108.4787 [id number] 553#1.00CD:127 [facility] Physician Orderon 12-21-2022 Physician Order 170.71.140.344.7471 [id number] 579#1.00CD:127 [facility] Procedure - Woundon 12-22-19 Procedure - Wound 170.71.280.546.9804 [id number] 549#1.00CD:127 [facility] Progress Note - Woundon 12-01 Progress Note - Wound 170.71.121.117.202 3 [id number] 894#1.00CD:127 [facility] Procedure - Woundon 12-18-19 Procedure - Wound 170.71.241.192.0770 [id number] 901#2.00CD:127 [facility] Nursing Note - Woundon 12-15 Nursing Note - Wound 170.71.602.776.7214 [id number] 779#2.00CD:127 [facility] Consent for Treatmenton 11-30 Consent for Treatment 159.140.128.34.202 3 [id number] 5A#1.00CD:127 [facility] Multi-Wound Charton 12-15-19 Multi-Wound Chart 170.71.988.490.0731 [id number] 645#1.00CD:127 [facility] Nursing Assessment - Woundon 12-14-2022 Nursing Assessment - Wound 170.71.748.983.6372 [id number] 942#1.00CD:127 [facility] Consent for Procedure/Surger yon 12-07-2022 Consent for Procedure/Surgery 149.45.122.15. [id number] 860#1.00CD:127 [facility] Consent for Treatmenton Consent for Treatment 159.140.128.34.202 3 [id number] D1#1.00CD:127 [facility] Multi-Wound Charton 12-08-19 Multi-Wound Chart 170.71.381.923.6142 [id number] 913#1.00CD:127 [facility] Nursing Assessment - Woundon 12-07-2022 Nursing Assessment - Wound 170.71.734.627.9085 [id number] 164#1.00CD:127 [facility] Nursing Note - Woundon 12-07 Nursing Note - Wound 170.71.962.490.4940 [id number] 674#1.00CD:127 [facility] Physician Orderon 12-07-2022 Physician Order 170.71.992.321.8474 [id number] 814#1.00CD:127 [facility] Procedure - Woundon 12-08-19 Procedure - Wound 170.71.573.944.9052 [id number] 670#1.00CD:127 [facility] Progress Note - Woundon Progress Note - Wound 170.71.121.117.202 3 [id number] 522#1.00CD:127 [facility] Multi-Wound Charton 12-01-19 Multi-Wound Chart 170.71.277.818.8943 [id number] 416#1.00CD:127 [facility] Nursing Note - Woundon 11-30 Nursing Note - Wound 170.71.667.900.7457 [id number] 741#1.00CD:127 [facility] Consent for Treatmenton -3 Consent for Treatment 159.140.128.36.202 3 [id number] 3B#1.00CD:127 [facility] Insurance Correspondenceon 0 11-29-2022 Insurance Correspondence [id number] 803#1.00CD:127 [facility] Physician Orderon 11-29-2022 Physician Order 170.71.611.076.5410 [id number] 461#1.00CD:127 [facility] Procedure - Woundon 11-30-19 Procedure - Wound 170.71.283.152.2878 [id number] 212#1.00CD:127 [facility] Nursing Note - Woundon 11-24 Nursing Note - Wound 170.71.324.533.0464 [id number] 966#2.00CD:127 [facility] Consent for Treatmenton 10-31 Consent for Treatment 159.140.128.34.202 3 [id number] F7#1.00CD:127 [facility] Multi-Wound Charton 11-24-19 Multi-Wound Chart 170.71.102.080.1758 [id number] 420#1.00CD:127 [facility] Nursing Assessment - Woundon 11-23-2022 Nursing Assessment - Wound 170.71.051.500.5837 [id number] 442#1.00CD:127 [facility] Nursing Note - Woundon 11-23 Nursing Note - Wound 170.71.667.896.6957 [id number] 795#1.00CD:127 [facility] Physician Orderon 11-23-2022 Physician Order 170.71.285.583.7219 [id number] 762#1.00CD:127 [facility] Procedure - Woundon 11-24-19 Procedure - Wound 170.71.078.531.3100 [id number] 707#1.00CD:127 [facility] Progress Note - Woundon 10-31 Progress Note - Wound 170.71.121.117.202 3 [id number] 390#1.00CD:127 [facility] Consent for Procedure/Surger yon 11-16-2022 Consent for Procedure/Surgery 149.45.122.13. [id number] 490#1.00CD:127 [facility] Consent for Treatmenton 10-30 Consent for Treatment 159.140.128.34.202 3 [id number] E7#1.00CD:127 [facility] Consent for Treatment 159.140.128.36.202 3 [id number] 86#1.00CD:127 [facility] Consent to Photographon 10-30 Consent to Photograph 149.45.122. 0 [id number] 407#1.00CD:127 [facility] Correspondence - Woundon Correspondence - Wound 149.45.122.13. [id number] 980#1.00CD:127 [facility] Correspondence - Wound 149.45.122.13. [id number] 831#1.00CD:127 [facility] Multi-Wound Charton 11-17-19 Multi-Wound Chart 170.71.558.080.1175 [id number] 692#1.00CD:127 [facility] Nursing Assessment - Woundon 11-16-2022 Nursing Assessment - Wound 170.71.252.464.7604 [id number] 509#1.00CD:127 [facility] Nursing Note - Woundon 11-16 Nursing Note - Wound 149.45.122.13.28504 [id number] 187#1.00CD:127 [facility] Physician Orderon 11-16-2022 Physician Order 170.71.412.535.0733 [id number] 726#1.00CD:127 [facility] Physician Order [id number] C1#1.00CD:127 [facility] Procedure - Woundon 11-17-19 Procedure - Wound 170.71.665.042.3456 [id number] 478#1.00CD:127 [facility] Progress Note - Woundon 10-30 Progress Note - Wound 170.71.121.117.202 3 [id number] 242#1.00CD:127 [facility] US LE Venous Duplex Lefton 0 11-16-2022 [...] MD, V. Transcribed by: RACHEL Technologist: QUE [facility] Reference Laboratory Testing Ordered By: [facility] DomainUser on 05-20-2021 SARS-CoV-2 (COVID-19) RNA DALILA+probe Ql (Resp) Not detected Invalid Interpretation Code Not Detected [facility] [employer] Comment on above: Result Comment: This nucleic acid amplification test was developed and its performance characteristics determined by [facility] ([facility]: [place]). Nucleic acid amplification tests include RT-PCR and [...] detected) result in this assay. Performed at: [address] [id number] PhD Rosi Peacock Encounters Encounter Date Encounter Type Care Provider Facility Start: 05-23-2023 End: 05-23-2023 ambulatory MARY ARMENDARIZ Not Available Start: 01-11-2023 End: 01-12-2023 ambulatory Mickey Robles Facility:[facility] Start: 01-11-2023 End: 01-11-2023 Patient encounter procedure Mickey Robles [facility] Start: 01-04-2023 End: 01-05-2023 ambulatory Mickey Robles Facility:[facility] Start: 01-04-2023 End: 01-04-2023 Patient encounter procedure Mickey Robles [facility] Start: 12-28-2022 End: 12-29-2022 ambulatory Mickey Robles Facility:[facility] Start: 12-21-2022 End: 12-22-2022 ambulatory Mickey Robles Facility:[facility] Start: 12-14-2022 End: 12-15-2022 ambulatory Mickey Robles Facility:[facility] Start: 12-14-2022 End: 12-14-2022 Patient encounter procedure Mickey Robles [facility] Start: 12-07-2022 End: 12-08-2022 ambulatory Mickey Robles Facility:[facility] Start: 12-07-2022 End: 12-07-2022 Patient encounter procedure Mickey Robles [facility] Start: 11-29-2022 End: 11-30-2022 ambulatory Mickey Robles Facility:[facility] Start: 11-29-2022 End: 11-29-2022 Patient encounter procedure Mickey Robles [facility] Start: 11-23-2022 End: 11-24-2022 ambulatory Mickey Robles Facility:[facility] Start: 11-16-2022 End: 11-17-2022 ambulatory Mickey Robles Facility:[facility] Start: 11-16-2022 End: 11-16-2022 Patient encounter procedure Mickey Robles [facility] Start: 11-16-2022 End: 11-17-2022 ambulatory Mickey Robles Facility:[facility] Start: 11-16-2022 End: 11-16-2022 Patient encounter procedure Mickey Robles [facility] Start: 05-20-2021 End: 08-18-2021 Patient encounter procedure Sharonda Bah [facility] Procedures Date Procedure Procedure Detail Performing Clinician [...] EYE Payers Date Payer Category Payer Unknown [id number] 2020 Unknown [id number] 1945 Unknown [id number] 2.16.8 [id number] 1945 Unknown [id number] 2.16.8 40.1.955786.3.579.2.72 1945 Unknown [id number] 2.16.8 40.1.027336.3.579.2.727 1945 Unknown [id number] 2.16.8 40.1.777236.3.579.2.72 1945 Unknown [id number] 2.16.8 40.1.291137.3.579.2.727 1945 Unknown [id number] 2.16.8 40.1.405491.3.579.2.72 1945 Unknown [id number] 2.16.8 40.1.432668.3.579.2.727 1945 Unknown [id number] 2.16.8 40.1.014680.3.579.2.72 1945 Unknown [id number] 2.16.8 40.1.562231.3.579.2.72 1945 Unknown [id number] 2.16.8 40.1.862835.3.579.2.72 1945 Unknown [id number] 2.16.84 0.1.046014.3.579.2.1259 Social History Date Type Detail Facility Tobacco smoking status [facility] Sex Assigned At Male [facility] Tobacco smoking status No Smoking Status Entered [facility] Medical Equipment Procedure Code Equipment Code Equipment [...] 06-08-2020 ANKLE FRACTURE O RIF Cochran DO, Edmetrio T 06/08/20 Unknown Ankle R FDA Start: [...] Locations R1: This test was performed at: [facility], [address] [place] [address], [facility] , , [facility] Comment on above: Performed By: #### [id number] ####[facility] [address] [place] [address] Evaluation + Plan note Note Date & Type Note Facility Evaluation + Plan note No data available for this section [facility] Evaluation + Plan note Note Date & Type Note Facility Evaluation + Plan note Future Appointments Appointment Date:11/23/2022 02:00:00 PM Scheduled Provider:Mickey Robles DPM Location[facility] Appointment Type:WC Follow Up Visit (FT) [facility] Evaluation + Plan note Note Date & Type Note Facility Evaluation + Plan note Future Appointments Appointment Date:11/23/2022 02:00:00 PM Scheduled Provider:Mickey Robles DPM Location:[facility] Appointment Type:WC Follow Up Visit (FT) Diagnostic Tests PendingWound Culture 11/16/22 [facility] Evaluation + Plan note Note Date & Type Note Facility Evaluation + Plan note Future Appointments Appointment Date:12/07/2022 02:00:00 PM Scheduled Provider:Mickey Robles DPM Location:[facility] Appointment Type:WC Follow Up Visit (FT) Appointment Date:12/07/2022 02:15:00 PM Scheduled Provider:Mickey Robles DPM Location:[facility] Appointment Type:WC Follow Up Visit (FT) [facility] Evaluation + Plan note Note Date & Type Note Facility Evaluation + Plan note Future Appointments Appointment Date:12/13/2022 09:30:00 AM Scheduled Provider: Location:[facility] Appointment Type:WC Assessment (FT) Appointment Date:12/21/2022 02:30:00 PM Scheduled Provider:Mickey Robles DPM Location:[facility] Appointment Type:WC Follow Up Visit (FT) [facility] Evaluation + Plan note Note Date & Type Note Facility Evaluation + Plan note Future Appointments Appointment Date:12/21/2022 02:30:00 PM Scheduled Provider:Mickey Robles DPM Location:[facility] Appointment Type:WC Follow Up Visit (FT) [facility] Evaluation + Plan note Note Date & Type Note Facility Evaluation + Plan note Future Appointments Appointment Date:01/11/2023 03:00:00 PM Scheduled Provider:Mickey Robles DPM Location:[facility] Appointment Type:WC Follow Up Visit (FT) [facility] Hospital Discharge instructions Note Date & Type Note Facility Hospital Discharge instructions No data available for this section [facility] Progress note Note Date & Type Note Facility Progress note No data available for this section [facility] Summary Purpose Family History No Family History Records FoundNo Family History Records Found Advance Directives No Advanced Directives Records FoundNo Advanced Directives Records Found Additional Source Comments Patient Care team informatio n (unrecognized section and content) Personnel Name: Sharonda Bah MD Address: Address: [address] [place] [address] Personnel Name: Sharonda Bah MD Address: Address: [address] [place] [address] Personnel Name: Sharonda Bah MD Address: Address: [address] [place] [address] Personnel Name: Sharonda Bah MD Address: Address: [address] [place] [address]. [address] [place] [address] Personnel Name: Sharonda aBh MD Address: Address: [address] [place] [address]. [address] [place] [address] Personnel Name: Sharonda Bah MD Address: Address: [address] [place] [address]. [address] Personnel Name: Sharonda Bah MD Address: Address: [address] [place] [address]. [address] (unrecognized sect ion and content) No Status Records FoundNo Status Records Found INFORMATION SOURCE (unrecogn ized section and content) DATE CREATED AUTHOR 03/09/2023 [facility] DATE CREATED AUTHOR CORRY MOLINA 05/23/2023 [facility] EPIC FOR RECORDS PERTAINING TO [...] BE BASED ON THE PRIMARY CLINICAL RECORDS. [employer] [facility]. provides no warranty or guarantee of the accuracy or completeness of information in this document.
== END 2023-06-22 14:12 | disposition home or self-care (01) ==
LOC: VC 14:11
PROVIDERS: PCP Radiology Diagnostic Radiology; Visit Provider Radiology Diagnostic Radiology
DX: I80.02 Phlebitis and thrombophlebitis of superficial vessels of left lower extremity (principal)
CPT/HCPCS: 93971; G0463

== ENCOUNTER 2023-07-05 13:00 | Outpatient (OUT) | payer MEDICARE, SELFPAY ==
[2023-07-05] MEDS: LIDOCAINE HCL 20 ML, SODIUM BICARBONATE 2 MEQ INJ (13:00)
--- NOTE | 2023-07-05 13:04 | VEIN_ITS ---
[address] [address] Patient Name: JASON PEARSON MRN: [id number] date: 1945 Sex: M Assigned Patient Location: Current Patient Location: Accession/Order Number: [id number] Exam Date: 07/05/2023 13:07 Report Date: 07/05/2023 13:51 At the request of: DANIEL NAVA Procedure: VC Endovenous Perf Ablation LT EXAMINATION: VC Endovenous Perf Ablation LT COMPARISON: 03/29/2023 INDICATIONS: I83.813 Bilateral painful varicose veins OPERATIVE REPORT: Diagnosis: Superficial venous reflux, incompetent perforating veins Procedure: Endovenous laser ablation of the left strawhat blocking operator(s) Procedure: The patient was positioned supine on the table and the leg was prepped and draped to allow for visualization during venous access. A sterile cover was draped over a 16 mhz ultrasound probe. Venous mapping was performed prior to the procedure noting location and size of vessel(s). [employer] vein 1: Left distal medial lower leg/ankle. The diameter of the vein ranged from 5 mm's below the muscular fascia to 7 mm's at the entry point. Using a 30 gauge needle the entry site was anesthetized with 1 cc of 1% buffered lidocaine. Access was gained percutaneously, with a 21-gauge needle, into the strawhat blocking operator vein under ultrasound guidance. The needle was advanced into the desired position and the pre-measured 400-micron fiber was then inserted into the needle and locked in place. The position of the fiber was imaged with ultrasound guidance. The fiber tip was visualized to be 20 mm from the deep vessel. An anesthetic solution of 6 cc 1% buffered lidocaine was delivered along the course of the vein under ultrasound guidance using a syringe. A final positioning check of the laser fiber tip was performed. The laser was activated by means of a foot-pedal and the fiber and needle were withdrawn together in accordance to the desired joules per treatment area/spot weld. 4 areas/spot welds were performed, and the total number of joules delivered was 193. The total time of energy delivery was 24 seconds. A duplex ultrasound revealed compressibility and flow of the deep system immediately after the procedure. Hemostasis of the access site was achieved [employer] vein 2: [Distal anterior lower leg. The diameter of the vein ranged from 4 mm's below the muscular fascia to 4 mm's at the entry point. Using a 30 gauge needle the entry site was anesthetized with 1 cc of 1% buffered lidocaine. Access was gained percutaneously, with a 21-gauge needle, into the strawhat blocking operator vein under ultrasound guidance. The needle was advanced into the desired position and the pre-measured 400-micron fiber was then inserted into the needle and locked in place. The position of the fiber was imaged with ultrasound guidance. The fiber tip was visualized to be 30 mm from the deep vessel. An anesthetic solution of 6 cc 1% buffered lidocaine was delivered along the course of the vein under ultrasound guidance using a syringe. A final positioning check of the laser fiber tip was performed. The laser was activated by means of a foot-pedal and the fiber and needle were withdrawn together in accordance to the desired joules per treatment area/spot weld. 4 areas/spot welds were performed, and the total number of joules delivered was 145. The total time of energy delivery was 18 seconds. A duplex ultrasound revealed compressibility and flow of the deep system immediately after the procedure. Hemostasis of the access site was achieved and dressed. A 20-30 mm compression stocking over coban was placed on the treated leg. Post-Op instructions were given, and a follow-up appointment was made. CONCLUSION: 1. Technically successful endovenous laser ablation of 2 separate left leg incompetent strawhat blocking operator veins Electronically authenticated by: DANIEL NAVA Date: 07/05/2023 13:51
--- OUTSIDE RECORDS SUMMARY | 2023-07-05 13:22 | XMS_ITS | CCD ---
Author Name Unknown Address [address] [place] [address] Organization [facility] Care Team Providers Care Vessel Captain Name Role Phone Sharonda Bah Primary Care [...] Range Facility Outside Recordson 03-08-2023 Outside Records [id number] 288#1.00TIFF [facility] Nursing Note - Woundon 01-14 Nursing Note - Wound 170.71.515.648.2570 [id number] 407#2.00CD:127 [facility] Consent for Treatmenton 12-31 Consent for Treatment 159.140.128.36.202 3 [id number] DB#1.00CD:127 [facility] Multi-Wound Charton 01-12-20 23 Multi-Wound Chart 170.71.616.364.8621 [id number] 334#1.00CD:127 [facility] Nursing Assessment - Woundon 01-11-2023 Nursing Assessment - Wound 170.71.705.017.0851 [id number] 744#1.00CD:127 [facility] Physician Orderon 01-11-2023 Physician Order 170.71.380.094.1518 [id number] 140#1.00CD:127 [facility] Progress Note - Woundon 12-31 Progress Note - Wound 170.71.121.117.202 3 [id number] 251#1.00CD:127 [facility] Consent for Procedure/Surger yon 01-04-2023 Consent for Procedure/Surgery 149.45.122.15. [id number] 903#1.00CD:127 [facility] Consent for Treatmenton Consent for Treatment 159.140.128.36.202 3 [id number] B4#1.00CD:127 [facility] Physician Orderon 01-04-2023 Physician Order 170.71.910.510.5872 [id number] 539#1.00CD:127 [facility] Progress Note - Woundon Progress Note - Wound 170.71.121.117.202 3 [id number] 143#1.00CD:127 [facility] Progress Note - Woundon 12-02 Progress Note - Wound 170.71.121.117.202 3 [id number] 392#2.00CD:127 [facility] Consent for Treatmenton 12-01 Consent for Treatment 159.140.128.34.202 3 [id number] 55#1.00CD:127 [facility] Multi-Wound Charton 12-29-19 Multi-Wound Chart 170.71.301.653.2063 [id number] 285#1.00CD:127 [facility] Nursing Assessment - Woundon 12-28-2022 Nursing Assessment - Wound 170.71.662.986.6405 [id number] 632#1.00CD:127 [facility] Nursing Note - Woundon 12-28 Nursing Note - Wound 170.71.635.732.2981 [id number] 281#1.00CD:127 [facility] Physician Orderon 12-28-2022 Physician Order 170.71.136.244.9713 [id number] 330#1.00CD:127 [facility] Procedure - Woundon 12-29-19 23 Procedure - Wound 170.71.414.155.1019 [id number] 179#1.00CD:127 [facility] Consent for Treatmenton 12-01 Consent for Treatment 159.140.128.36.202 3 [id number] 4C#1.00CD:127 [facility] Multi-Wound Charton 12-22-19 Multi-Wound Chart 170.71.242.261.9361 [id number] 612#1.00CD:127 [facility] Nursing Assessment - Woundon 12-21-2022 Nursing Assessment - Wound 170.71.528.474.0694 [id number] 169#1.00CD:127 [facility] Nursing Note - Woundon 12-21 Nursing Note - Wound 170.71.634.546.1159 [id number] 553#1.00CD:127 [facility] Physician Orderon 12-21-2022 Physician Order 170.71.148.967.9851 [id number] 579#1.00CD:127 [facility] Procedure - Woundon 12-22-19 Procedure - Wound 170.71.609.623.8335 [id number] 549#1.00CD:127 [facility] Progress Note - Woundon 12-01 Progress Note - Wound 170.71.121.117.202 3 [id number] 894#1.00CD:127 [facility] Procedure - Woundon 12-18-19 Procedure - Wound 170.71.554.333.4220 [id number] 901#2.00CD:127 [facility] Nursing Note - Woundon 12-15 Nursing Note - Wound 170.71.762.480.3887 [id number] 779#2.00CD:127 [facility] Consent for Treatmenton 11-30 Consent for Treatment 159.140.128.34.202 3 [id number] 5A#1.00CD:127 [facility] Multi-Wound Charton 12-15-19 Multi-Wound Chart 170.71.377.630.5841 [id number] 645#1.00CD:127 [facility] Nursing Assessment - Woundon 12-14-2022 Nursing Assessment - Wound 170.71.620.066.2046 [id number] 942#1.00CD:127 [facility] Consent for Procedure/Surger yon 12-07-2022 Consent for Procedure/Surgery 149.45.122.15. [id number] 860#1.00CD:127 [facility] Consent for Treatmenton Consent for Treatment 159.140.128.34.202 3 [id number] D1#1.00CD:127 [facility] Multi-Wound Charton 12-08-19 Multi-Wound Chart 170.71.056.370.5925 [id number] 913#1.00CD:127 [facility] Nursing Assessment - Woundon 12-07-2022 Nursing Assessment - Wound 170.71.021.379.8977 [id number] 164#1.00CD:127 [facility] Nursing Note - Woundon 12-07 Nursing Note - Wound 170.71.025.274.8450 [id number] 674#1.00CD:127 [facility] Physician Orderon 12-07-2022 Physician Order 170.71.845.617.7557 [id number] 814#1.00CD:127 [facility] Procedure - Woundon 12-08-19 Procedure - Wound 170.71.838.780.7865 [id number] 670#1.00CD:127 [facility] Progress Note - Woundon Progress Note - Wound 170.71.121.117.202 3 [id number] 522#1.00CD:127 [facility] Multi-Wound Charton 12-01-19 Multi-Wound Chart 170.71.436.589.5854 [id number] 416#1.00CD:127 [facility] Nursing Note - Woundon 11-30 Nursing Note - Wound 170.71.724.166.6802 [id number] 741#1.00CD:127 [facility] Consent for Treatmenton -3 Consent for Treatment 159.140.128.36.202 3 [id number] 3B#1.00CD:127 [facility] Insurance Correspondenceon 0 11-29-2022 Insurance Correspondence 170.71.121.87.57908 [id number] 803#1.00CD:127 [facility] Physician Orderon 11-29-2022 Physician Order 170.71.853.038.3080 [id number] 461#1.00CD:127 [facility] Procedure - Woundon 11-30-19 Procedure - Wound 170.71.857.608.9142 [id number] 212#1.00CD:127 [facility] Nursing Note - Woundon 11-24 Nursing Note - Wound 170.71.229.694.8418 [id number] 966#2.00CD:127 [facility] Consent for Treatmenton 10-31 Consent for Treatment 159.140.128.34.202 3 [id number] F7#1.00CD:127 [facility] Multi-Wound Charton 11-24-19 Multi-Wound Chart 170.71.055.247.5563 [id number] 420#1.00CD:127 [facility] Nursing Assessment - Woundon 11-23-2022 Nursing Assessment - Wound 170.71.789.481.2563 [id number] 442#1.00CD:127 [facility] Nursing Note - Woundon 11-23 Nursing Note - Wound 170.71.024.922.4380 [id number] 795#1.00CD:127 [facility] Physician Orderon 11-23-2022 Physician Order 170.71.940.177.3426 [id number] 762#1.00CD:127 [facility] Procedure - Woundon 11-24-19 Procedure - Wound 170.71.790.496.4543 [id number] 707#1.00CD:127 [facility] Progress Note - Woundon 10-31 Progress Note - Wound 170.71.121.117.202 3 [id number] 390#1.00CD:127 [facility] Consent for Procedure/Surger yon 11-16-2022 Consent for Procedure/Surgery 149.45.122.13. [id number] 490#1.00CD:127 [facility] Consent for Treatmenton 10-30 Consent for Treatment 159.140.128.34.202 3 [id number] E7#1.00CD:127 [facility] Consent for Treatment 159.140.128.36.202 3 [id number] 86#1.00CD:127 [facility] Consent to Photographon 10-30 Consent to Photograph 149.45.122. 0 [id number] 407#1.00CD:127 [facility] Correspondence - Woundon Correspondence - Wound 149.45.122.13. [id number] 980#1.00CD:127 [facility] Correspondence - Wound 149.45.122.13. [id number] 831#1.00CD:127 [facility] Multi-Wound Charton 11-17-19 Multi-Wound Chart 170.71.124.163.7753 [id number] 692#1.00CD:127 [facility] Nursing Assessment - Woundon 11-16-2022 Nursing Assessment - Wound 170.71.317.291.0159 [id number] 509#1.00CD:127 [facility] Nursing Note - Woundon 11-16 Nursing Note - Wound 149.45.122.13.75988 [id number] 187#1.00CD:127 [facility] Physician Orderon 11-16-2022 Physician Order 170.71.402.735.0554 [id number] 726#1.00CD:127 [facility] Physician Order 104.170.192.36.2022 [id number] C1#1.00CD:127 [facility] Procedure - Woundon 11-17-19 Procedure - Wound 170.71.768.106.3731 [id number] 478#1.00CD:127 [facility] Progress Note - Woundon 10-30 Progress Note - Wound 170.71.121.117.202 3 [id number] 242#1.00CD:127 [facility] US LE Venous Duplex Lefton 0 11-16-2022 [...] MD, V. Transcribed by: RACHEL Technologist: QUE [facility] Reference Laboratory Testing Ordered By: [facility] [employer] on 05-20-2021 SARS-CoV-2 (COVID-19) RNA DALILA+probe Ql (Resp) Not detected Invalid Interpretation Code Not Detected [facility] [employer] Comment on above: Result Comment: This nucleic acid amplification test was developed and its performance characteristics determined by [employer]. Nucleic acid amplification tests include RT-PCR and [...] detected) result in this assay. Performed at: [address] [id number] PhD Rosi Peacock Encounters Encounter Date Encounter Type Care Provider Facility Start: 05-23-2023 End: 05-23-2023 ambulatory MARY ARMENDARIZ Not Available Start: 01-11-2023 End: 01-12-2023 ambulatory Mickey Robles Facility:[facility] Start: 01-11-2023 End: 01-11-2023 Patient encounter procedure Mickey Robles [facility] Start: 01-04-2023 End: 01-05-2023 ambulatory Mickey Robles Facility:[facility] Start: 01-04-2023 End: 01-04-2023 Patient encounter procedure Mickey Robles [facility] Start: 12-28-2022 End: 12-29-2022 ambulatory Mickey Robles Facility:[facility] Start: 12-21-2022 End: 12-22-2022 ambulatory Mickey Robles Facility:[facility] Start: 12-14-2022 End: 12-15-2022 ambulatory Mickey Robles Facility:[facility] Start: 12-14-2022 End: 12-14-2022 Patient encounter procedure iMckey Robles [facility] Start: 12-07-2022 End: 12-08-2022 ambulatory Mickey Robles Facility:[facility] Start: 12-07-2022 End: 12-07-2022 Patient encounter procedure Mickey Robles [facility] Start: 11-29-2022 End: 11-30-2022 ambulatory Mickey Robles Facility:[facility] Start: 11-29-2022 End: 11-29-2022 Patient encounter procedure Mickey Robles [facility] Start: 11-23-2022 End: 11-24-2022 ambulatory Mickey Robles Facility:[facility] Start: 11-16-2022 End: 11-17-2022 ambulatory Mickey Robles Facility:[facility] Start: 11-16-2022 End: 11-16-2022 Patient encounter procedure Mickey Robles [facility] Start: 11-16-2022 End: 11-17-2022 ambulatory Mickey Robles Facility:[facility] Start: 11-16-2022 End: 11-16-2022 Patient encounter procedure Mickey Robles [facility] Start: 05-20-2021 End: 08-18-2021 Patient encounter procedure Sharonda Bah [facility] Procedures Date Procedure Procedure Detail Performing [...] EYE Payers Date Payer Category Payer Unknown [id number] 2020 Unknown [id number] 1945 Unknown [id number] 2.16.8 [id number] 1945 Unknown [id number] 2.16.8 40.1.216956.3.579.2.72 1945 Unknown [id number] 2.16.8 40.1.372190.3.579.2.727 1945 Unknown [id number] 2.16.8 40.1.790090.3.579.2.72 1945 Unknown [id number] 2.16.8 40.1.331622.3.579.2.727 1945 Unknown [id number] 2.16.8 40.1.054818.3.579.2.72 1945 Unknown [id number] 2.16.8 40.1.110915.3.579.2.727 1944 Unknown [id number] 2.16.8 40.1.640272.3.579.2.72 1944 Unknown [id number] 2.16.8 40.1.768576.3.579.2.72 1944 Unknown [id number] 2.16.8 40.1.854319.3.579.2.72 1945 Unknown [id number] 2.16.84 0.1.722884.3.579.2.1259 Social History Date Type Detail Facility Tobacco smoking status [facility] Sex Assigned At Male [facility] Tobacco smoking status No Smoking Status Entered [facility] Medical Equipment Procedure Code Equipment Code [...] Locations R1: This test was performed at: [facility], [address] [place] [address], [facility] , , [facility] Comment on above: Performed By: #### [id number] ####[facility] [address] [place] [address] Evaluation + Plan note Note Date & Type Note Facility Evaluation + Plan note No data available for this section [facility] Evaluation + Plan note Note Date & Type Note Facility Evaluation + Plan note Future Appointments Appointment Date:11/23/2022 02:00:00 PM Scheduled Provider:Mickey Robles DPM Location[facility] Appointment Type:WC Follow Up Visit (FT) [facility] Evaluation + Plan note Note Date & Type Note Facility Evaluation + Plan note Future Appointments Appointment Date:11/23/2022 02:00:00 PM Scheduled Provider:Mickey Robles DPM Location:[facility] Appointment Type:WC Follow Up Visit (FT) Diagnostic Tests PendingWound Culture 11/16/22 [facility] Evaluation + Plan note Note Date & Type Note Facility Evaluation + Plan note Future Appointments Appointment Date:12/07/2022 02:00:00 PM Scheduled Provider:Mickey Robles DPM Location:[facility] Appointment Type:WC Follow Up Visit (FT) Appointment Date:12/07/2022 02:15:00 PM Scheduled Provider:Mickey Robles DPM Location:[facility] Appointment Type:WC Follow Up Visit (FT) [facility] Evaluation + Plan note Note Date & Type Note Facility Evaluation + Plan note Future Appointments Appointment Date:12/13/2022 09:30:00 AM Scheduled Provider: Location:[facility] Appointment Type:WC Assessment (FT) Appointment Date:12/21/2022 02:30:00 PM Scheduled Provider:Mickey Robles DPM Location:[facility] Appointment Type:WC Follow Up Visit (FT) [facility] Evaluation + Plan note Note Date & Type Note Facility Evaluation + Plan note Future Appointments Appointment Date:12/21/2022 02:30:00 PM Scheduled Provider:Mickey Robles DPM Location:[facility] Appointment Type:WC Follow Up Visit (FT) [facility] Evaluation + Plan note Note Date & Type Note Facility Evaluation + Plan note Future Appointments Appointment Date:01/11/2023 03:00:00 PM Scheduled Provider:Mickey Robles DPM Location:[facility] Appointment Type:WC Follow Up Visit (FT) [facility] Hospital Discharge instructions Note Date & Type Note Facility Hospital Discharge instructions No data available for this section [facility] Progress note Note Date & Type Note Facility Progress note No data available for this section [facility] Summary Purpose Family History No Family History Records FoundNo Family History Records Found Advance Directives No Advanced Directives Records FoundNo Advanced Directives Records Found Additional Source Comments Patient Care team informatio n (unrecognized section and content) Personnel Name: Sharonda Bah MD Address: Address: [address] [place] [address] Personnel Name: Sharonda Bah MD Address: Address: [address] [place] [address] Personnel Name: Sharonda Bah MD Address: Address: [address] [place] [address] Personnel Name: Sharonda Bah MD Address: Address: [address] [place] [address]. [address] [place] [address] Personnel Name: Sharonda Bah MD Address: Address: [address] [place] [address]. [address] [place] [address] Personnel Name: Sharonda Bah MD Address: Address: [address] [place] [address]. [address] Personnel Name: Sharonda Bah MD Address: Address: [address] [place] [address]. [address] (unrecognized sect ion and content) No Status Records FoundNo Status Records Found INFORMATION SOURCE (unrecogn ized section and content) DATE CREATED AUTHOR 03/09/2023 [facility] DATE CREATED AUTHOR CORRY MOLINA 05/23/2023 [facility] EPIC FOR RECORDS PERTAINING [...] BE BASED ON THE PRIMARY CLINICAL RECORDS. [employer] [facility]. provides no warranty or guarantee of the accuracy or completeness of information in this document.
== END 2023-07-05 13:01 | disposition home or self-care (01) ==
LOC: VC 13:00
PROVIDERS: PCP Radiology Diagnostic Radiology; Visit Provider Radiology Diagnostic Radiology
DX: I83.813 Varicose veins of bilateral lower extremities with pain (principal)
CPT/HCPCS: 36478

== ENCOUNTER 2023-07-18 14:02 | Outpatient (OUT) | payer MEDICARE, SELFPAY ==
--- NOTE | 2023-07-18 14:04 | VEIN_ITS ---
Patient Name: JASON PEARSON MR#: [id number] : 1945 Exam Date: 07/18/2023 Ordering Doctor: DR JESUS BOO M.D. RADIOLOGY REPORT PROCEDURE: [facility] - OFFICE VISIT FOLLOW UP COMPARISON: [facility], 06/22/2023. PROGRESS NOTES: The patient reports no significant problems following intravenous laser ablation of 3 incompetent left leg perforating veins. The patient did not require oral analgesics for the patient has worn his compression stockings. Patient has tried exercise. Physical exam demonstrates reduction and erythema and swelling of the left leg. There is now an eschar along the patient's longstanding venous stasis ulceration. No erythema or warmth to suggest cellulitis or thrombophlebitis Review of the ultrasound performed the same day demonstrates occlusive thrombus extending throughout the 3 treated left incompetent perforating veins. No deep vein thrombus. The patient expressed a desire to proceed with treatment of incompetent left leg varicose veins with micro foam chemical ablation before moving on to the right leg. [facility]: 1. Successful ablation of treated incompetent left leg perforating veins with no deep vein thrombus 2. Persistent incompetent left leg varicose veins. PLAN: Micro foam chemical ablation left leg incompetent varicose veins Nurse notes, history and physical were reviewed and confirmed, see attached forms. The nurse was present throughout the physical exam and consultation Dictated by: Jesus Boo MD on 07/18/2023 at 14:42 Approved by: Jesus Boo MD on 07/18/2023 at 14:46
--- NOTE | 2023-07-18 14:04 | VEIN_ITS ---
Patient Name: JASON PEARSON MR#: [id number] : 1945 Exam Date: 07/18/2023 Ordering Doctor: DR JESUS BOO M.D. RADIOLOGY REPORT PROCEDURE: VC EXT VENOUS LT LIMITED COMPARISON: VC EXT VENOUS LT LIMITED, 06/22/2023. INDICATIONS: Phlebitis of superficial vein of left lower extremity I80.02 TECHNIQUE: Lower extremity mckinney scale and Duplex Doppler evaluation of the deep venous system from the inguinal ligament through the calf veins. FINDINGS: REGION: Left lower extremity. THROMBI: Negative for DVT. Heat induced thrombus in three perforators medial left leg. COMPRESSIBILITY: Non-compressible segments corresponding to thrombus FLOW: Areas of no flow corresponding to thrombus CONCLUSION: Post ablation occlusion of treated left leg incompetent perforating veins. No deep vein thrombus Dictated by: Jesus Boo MD on 07/18/2023 at 14:41 Approved by: Jesus Boo MD on 07/18/2023 at 14:42
--- OUTSIDE RECORDS SUMMARY | 2023-07-18 14:20 | XMS_ITS | CCD ---
Author Name Unknown Address [address] [place] [address] Organization [facility] Care Team Providers Care Loin Trimmer Name Role Phone Sharonda Bah Primary Care [...] Range Facility Outside Recordson 03-08-2023 Outside Records [id number] 288#1.00TIFF [facility] Nursing Note - Woundon 01-14 Nursing Note - Wound 170.71.646.148.4882 [id number] 407#2.00CD:127 [facility] Consent for Treatmenton 12-31 Consent for Treatment 159.140.128.36.202 3 [id number] DB#1.00CD:127 [facility] Multi-Wound Charton 01-12-20 23 Multi-Wound Chart 170.71.502.171.7589 [id number] 334#1.00CD:127 [facility] Nursing Assessment - Woundon 01-11-2023 Nursing Assessment - Wound 170.71.688.153.5630 [id number] 744#1.00CD:127 [facility] Physician Orderon 01-11-2023 Physician Order [id number] 140#1.00CD:127 [facility] Progress Note - Woundon 12-31 Progress Note - Wound 170.71.121.117.202 3 [id number] 251#1.00CD:127 [facility] Consent for Procedure/Surger yon 01-04-2023 Consent for Procedure/Surgery 149.45.122.15. [id number] 903#1.00CD:127 [facility] Consent for Treatmenton Consent for Treatment 159.140.128.36.202 3 [id number] B4#1.00CD:127 [facility] Physician Orderon 01-04-2023 Physician Order [id number] 539#1.00CD:127 [facility] Progress Note - Woundon Progress Note - Wound 170.71.121.117.202 3 [id number] 143#1.00CD:127 [facility] Progress Note - Woundon 12-02 Progress Note - Wound 170.71.121.117.202 3 [id number] 392#2.00CD:127 [facility] Consent for Treatmenton 12-01 Consent for Treatment 159.140.128.34.202 3 [id number] 55#1.00CD:127 [facility] Multi-Wound Charton 12-29-19 Multi-Wound Chart 170.71.090.917.3535 [id number] 285#1.00CD:127 [facility] Nursing Assessment - Woundon 12-28-2022 Nursing Assessment - Wound 170.71.008.709.5339 [id number] 632#1.00CD:127 [facility] Nursing Note - Woundon 12-28 Nursing Note - Wound 170.71.954.491.8306 [id number] 281#1.00CD:127 [facility] Physician Orderon 12-28-2022 Physician Order [id number] 330#1.00CD:127 [facility] Procedure - Woundon 12-29-19 23 Procedure - Wound 170.71.263.697.1456 [id number] 179#1.00CD:127 [facility] Consent for Treatmenton 12-01 Consent for Treatment 159.140.128.36.202 3 [id number] 4C#1.00CD:127 [facility] Multi-Wound Charton 12-22-19 Multi-Wound Chart 170.71.556.799.4813 [id number] 612#1.00CD:127 [facility] Nursing Assessment - Woundon 12-21-2022 Nursing Assessment - Wound 170.71.629.332.1507 [id number] 169#1.00CD:127 [facility] Nursing Note - Woundon 12-21 Nursing Note - Wound 170.71.885.223.2478 [id number] 553#1.00CD:127 [facility] Physician Orderon 12-21-2022 Physician Order [id number] 579#1.00CD:127 [facility] Procedure - Woundon 12-22-19 Procedure - Wound 170.71.030.639.8931 [id number] 549#1.00CD:127 [facility] Progress Note - Woundon 12-01 Progress Note - Wound 170.71.121.117.202 3 [id number] 894#1.00CD:127 [facility] Procedure - Woundon 12-18-19 Procedure - Wound 170.71.044.126.4307 [id number] 901#2.00CD:127 [facility] Nursing Note - Woundon 12-15 Nursing Note - Wound 170.71.936.888.0832 [id number] 779#2.00CD:127 [facility] Consent for Treatmenton 11-30 Consent for Treatment 159.140.128.34.202 3 [id number] 5A#1.00CD:127 [facility] Multi-Wound Charton 12-15-19 Multi-Wound Chart 170.71.197.878.5042 [id number] 645#1.00CD:127 [facility] Nursing Assessment - Woundon 12-14-2022 Nursing Assessment - Wound 170.71.030.599.1185 [id number] 942#1.00CD:127 [facility] Consent for Procedure/Surger yon 12-07-2022 Consent for Procedure/Surgery 149.45.122.15. [id number] 860#1.00CD:127 [facility] Consent for Treatmenton Consent for Treatment 159.140.128.34.202 3 [id number] D1#1.00CD:127 [facility] Multi-Wound Charton 12-08-19 Multi-Wound Chart 170.71.674.981.7653 [id number] 913#1.00CD:127 [facility] Nursing Assessment - Woundon 12-07-2022 Nursing Assessment - Wound 170.71.566.500.4025 [id number] 164#1.00CD:127 [facility] Nursing Note - Woundon 12-07 Nursing Note - Wound 170.71.540.211.3632 [id number] 674#1.00CD:127 [facility] Physician Orderon 12-07-2022 Physician Order 170.71.266.106.9487 [id number] 814#1.00CD:127 [facility] Procedure - Woundon 12-08-19 Procedure - Wound 170.71.080.890.0741 [id number] 670#1.00CD:127 [facility] Progress Note - Woundon Progress Note - Wound 170.71.121.117.202 3 [id number] 522#1.00CD:127 [facility] Multi-Wound Charton 12-01-19 Multi-Wound Chart 170.71.778.483.5730 [id number] 416#1.00CD:127 [facility] Nursing Note - Woundon 11-30 Nursing Note - Wound 170.71.228.349.1725 [id number] 741#1.00CD:127 [facility] Consent for Treatmenton -3 Consent for Treatment 159.140.128.36.202 3 [id number] 3B#1.00CD:127 [facility] Insurance Correspondenceon 0 11-29-2022 Insurance Correspondence 170.71.121.87.27289 [id number] 803#1.00CD:127 [facility] Physician Orderon 11-29-2022 Physician Order 170.71.494.094.7009 [id number] 461#1.00CD:127 [facility] Procedure - Woundon 11-30-19 Procedure - Wound 170.71.923.043.0171 [id number] 212#1.00CD:127 [facility] Nursing Note - Woundon 11-24 Nursing Note - Wound 170.71.764.008.3107 [id number] 966#2.00CD:127 [facility] Consent for Treatmenton 10-31 Consent for Treatment 159.140.128.34.202 3 [id number] F7#1.00CD:127 [facility] Multi-Wound Charton 11-24-19 Multi-Wound Chart 170.71.631.882.1320 [id number] 420#1.00CD:127 [facility] Nursing Assessment - Woundon 11-23-2022 Nursing Assessment - Wound 170.71.389.153.5835 [id number] 442#1.00CD:127 [facility] Nursing Note - Woundon 11-23 Nursing Note - Wound 170.71.248.500.3713 [id number] 795#1.00CD:127 [facility] Physician Orderon 11-23-2022 Physician Order 170.71.926.912.8302 [id number] 762#1.00CD:127 [facility] Procedure - Woundon 11-24-19 Procedure - Wound 170.71.353.819.6379 [id number] 707#1.00CD:127 [facility] Progress Note - Woundon 10-31 Progress Note - Wound 170.71.121.117.202 3 [id number] 390#1.00CD:127 [facility] Consent for Procedure/Surger yon 11-16-2022 Consent for Procedure/Surgery 149.45.122.13. [id number] 490#1.00CD:127 [facility] Consent for Treatmenton 10-30 Consent for Treatment 159.140.128.34.202 3 [id number] E7#1.00CD:127 [facility] Consent for Treatment 159.140.128.36.202 3 [id number] 86#1.00CD:127 [facility] Consent to Photographon 10-30 Consent to Photograph 149.45.122. 0 [id number] 407#1.00CD:127 [facility] Correspondence - Woundon Correspondence - Wound 149.45.122.13. [id number] 980#1.00CD:127 [facility] Correspondence - Wound 149.45.122.13. [id number] 831#1.00CD:127 [facility] Multi-Wound Charton 11-17-19 Multi-Wound Chart 170.71.719.720.0562 [id number] 692#1.00CD:127 [facility] Nursing Assessment - Woundon 11-16-2022 Nursing Assessment - Wound 170.71.178.931.2368 [id number] 509#1.00CD:127 [facility] Nursing Note - Woundon 11-16 Nursing Note - Wound 149.45.122.13.94416 [id number] 187#1.00CD:127 [facility] Physician Orderon 11-16-2022 Physician Order 170.71.013.690.2306 [id number] 726#1.00CD:127 [facility] Physician Order [id number] C1#1.00CD:127 [facility] Procedure - Woundon 11-17-19 Procedure - Wound 170.71.633.550.3160 [id number] 478#1.00CD:127 [facility] Progress Note - Woundon 10-30 Progress Note - Wound 170.71.121.117.202 3 [id number] 242#1.00CD:127 [facility] US LE Venous Duplex Lefton 0 11-16-2022 [...] MD, V. Transcribed by: RACHEL Technologist: QUE [facility] Laboratory Testing Ordered By: [facility] [employer] on 05-20-2021 SARS-CoV-2 (COVID-19) RNA DALILA+probe Ql (Resp) Not detected Invalid Interpretation Code Not Detected [facility] [employer] Comment on above: Result Comment: This nucleic acid amplification test was developed and its performance characteristics determined by [employer]. Nucleic acid amplification tests include RT-PCR and [...] detected) result in this assay. Performed at: [address] [id number] PhD Rosi Peacock Encounters Encounter Date Encounter Type Care Provider Facility Start: 05-23-2023 End: 05-23-2023 ambulatory MARY ARMENDARIZ Not Available Start: 01-11-2023 End: 01-12-2023 ambulatory Mickey Robles Facility:[facility] Start: 01-11-2023 End: 01-11-2023 Patient encounter procedure Mickey Robles [facility] Start: 01-04-2023 End: 01-05-2023 ambulatory Mickey Robles Facility:[facility] Start: 01-04-2023 End: 01-04-2023 Patient encounter procedure Mickey Robles [facility] Start: 12-28-2022 End: 12-29-2022 ambulatory Mickey Robles Facility:[facility] Start: 12-21-2022 End: 12-22-2022 ambulatory Mickey Robles Facility:[facility] Start: 12-14-2022 End: 12-15-2022 ambulatory Mickey Robles Facility:[facility] Start: 12-14-2022 End: 12-14-2022 Patient encounter procedure Mickey Robles [facility] Start: 12-07-2022 End: 12-08-2022 ambulatory Mickey Robles Facility:[facility] Start: 12-07-2022 End: 12-07-2022 Patient encounter procedure Mickey Robles [facility] Start: 11-29-2022 End: 11-30-2022 ambulatory Mickey Robles Facility:[facility] Start: 11-29-2022 End: 11-29-2022 Patient encounter procedure Mickey Robles [facility] Start: 11-23-2022 End: 11-24-2022 ambulatory Mickey Robles Facility:[facility] Start: 11-16-2022 End: 11-17-2022 ambulatory Mickey Robles Facility:[facility] Start: 11-16-2022 End: 11-16-2022 Patient encounter procedure Mickey Robles [facility] Start: 11-16-2022 End: 11-17-2022 ambulatory Mickey Robles Facility:[facility] Start: 11-16-2022 End: 11-16-2022 Patient encounter procedure Mickey Robles [facility] Start: 05-20-2021 End: 08-18-2021 Patient encounter procedure Sharonda Bah [facility] Procedures Date Procedure Procedure Detail Performing Clinician [...] EYE Payers Date Payer Category Payer Unknown [id number] 2020 Unknown [id number] 1945 Unknown [id number] 2.16.8 [id number] 1945 Unknown [id number] 2.16.8 40.1.660971.3.579.2.72 1945 Unknown [id number] 2.16.8 40.1.865466.3.579.2.727 1945 Unknown [id number] 2.16.8 40.1.057959.3.579.2.72 1945 Unknown [id number] 2.16.8 40.1.416769.3.579.2.727 1945 Unknown [id number] 2.16.8 40.1.515824.3.579.2.72 1945 Unknown [id number] 2.16.8 40.1.584285.3.579.2.727 1945 Unknown [id number] 2.16.8 40.1.289446.3.579.2.72 1945 Unknown [id number] 2.16.8 40.1.204014.3.579.2.72 1945 Unknown [id number] 2.16.8 40.1.649133.3.579.2.72 1945 Unknown [id number] 2.16.84 0.1.231284.3.579.2.1259 Social History Date Type Detail Facility Tobacco smoking status [facility] Sex Assigned At Male [facility] Tobacco smoking status No Smoking Status Entered [facility] Medical Equipment Procedure Code Equipment Code Equipment [...] Locations R1: This test was performed at: [facility], [address] [place] [address], [facility] , , [facility] Comment on above: Performed By: #### [id number] ####[facility] [address] [place] [address] Evaluation + Plan note Note Date & Type Note Facility Evaluation + Plan note No data available for this section [facility] Evaluation + Plan note Note Date & Type Note Facility Evaluation + Plan note Future Appointments Appointment Date:11/23/2022 02:00:00 PM Scheduled Provider:Mickey Robles DPM Location:[facility] Appointment Type:WC Follow Up Visit (FT) [facility] Evaluation + Plan note Note Date & Type Note Facility Evaluation + Plan note Future Appointments Appointment Date:11/23/2022 02:00:00 PM Scheduled Provider:Mickey Robles DPM Location:[facility] Appointment Type:WC Follow Up Visit (FT) Diagnostic Tests PendingWound Culture 11/16/22 [facility] Evaluation + Plan note Note Date & Type Note Facility Evaluation + Plan note Future Appointments Appointment Date:12/07/2022 02:00:00 PM Scheduled Provider:Mickey Robles DPM Location:[facility] Appointment Type:WC Follow Up Visit (FT) Appointment Date:12/07/2022 02:15:00 PM Scheduled Provider:Mickey Robles DPM Location:[facility] Appointment Type:WC Follow Up Visit (FT) [facility] Evaluation + Plan note Note Date & Type Note Facility Evaluation + Plan note Future Appointments Appointment Date:12/13/2022 09:30:00 AM Scheduled Provider: Location:[facility] Appointment Type:WC Assessment (FT) Appointment Date:12/21/2022 02:30:00 PM Scheduled Provider:Mickey Robles DPM Location:[facility] Appointment Type:WC Follow Up Visit (FT) [facility] Evaluation + Plan note Note Date & Type Note Facility Evaluation + Plan note Future Appointments Appointment Date:12/21/2022 02:30:00 PM Scheduled Provider:Mickey Robles DPM Location:[facility] Appointment Type:WC Follow Up Visit (FT) [facility] Evaluation + Plan note Note Date & Type Note Facility Evaluation + Plan note Future Appointments Appointment Date:01/11/2023 03:00:00 PM Scheduled Provider:Mickey Robles DPM Location:[facility] Appointment Type:WC Follow Up Visit (FT) [facility] Hospital Discharge instructions Note Date & Type Note Facility Hospital Discharge instructions No data available for this section [facility] Progress note Note Date & Type Note Facility Progress note No data available for this section [facility] Summary Purpose Family History No Family History Records FoundNo Family History Records Found Advance Directives No Advanced Directives Records FoundNo Advanced Directives Records Found Additional Source Comments Patient Care team informatio n (unrecognized section and content) Personnel Name: Sharonda Bah MD Address: Address: [address] [place] [address] Personnel Name: Sharonda Bah MD Address: Address: [address] [place] [address] Personnel Name: Sharonda Bah MD Address: Address: [address] [place] [address] Personnel Name: Sharonda Bah MD Address: Address: [address] [place] [address]. [address] [place] [address] Personnel Name: Sharonda Bah MD Address: Address: [address] [place] [address]. [address] [place] [address] Personnel Name: Sharonda Bah MD Address: Address: [address] [place] [address]. [address] Personnel Name: Sharonda Bah MD Address: Address: [address] [place] [address]. [address] (unrecognized sect ion and content) No Status Records FoundNo Status Records Found INFORMATION SOURCE (unrecogn ized section and content) DATE CREATED AUTHOR 03/09/2023 [facility] DATE CREATED AUTHOR CORRY MOLINA 05/23/2023 [facility] EPIC FOR RECORDS PERTAINING TO [...] BE BASED ON THE PRIMARY CLINICAL RECORDS. [facility]. provides no warranty or guarantee of the accuracy or completeness of information in this document.
== END 2023-07-18 14:03 | disposition home or self-care (01) ==
LOC: VC 14:03
PROVIDERS: PCP Radiology Diagnostic Radiology; Visit Provider Radiology Diagnostic Radiology
DX: I80.02 Phlebitis and thrombophlebitis of superficial vessels of left lower extremity (principal)
CPT/HCPCS: 93971; G0463

== ENCOUNTER 2023-08-10 12:59 | Outpatient (OUT) | payer MEDICARE, SELFPAY ==
--- NOTE | 2023-08-10 13:02 | VEIN_ITS ---
[address] [address] Patient Name: JASON PEARSON MRN: [id number] date: 1945 Sex: M Assigned Patient Location: Current Patient Location: Accession/Order Number: [id number] Exam Date: 08/10/2023 13:03 Report Date: 08/10/2023 13:57 At the request of: DANIEL NAVA Procedure: VC INJ Foam Sclerosant WUS STAFF VETERINARIAN PROCEDURE: VC INJ Foam Sclerosant WUS STAFF VETERINARIAN COMPARISON: None. 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 Ultrasound-guided microfoam chemical ablation with Varithenaregistered 2. Intraoperative ultrasound guidance Anesthesia: None Indications for Procedure: 78-year-old male who presents with a long history of lower extremity pain and swelling culminating in venous stasis ulcerations. The patient failed conservative medical therapy including medical compression stockings, exercise and analgesics. Prior procedures include endovenous laser ablation. Multiple incompetent varicosities of the left leg. Duplex scan showed reflux and enlarged diameters up to 6 mm. The patient underwent informed consent including management options where the complications of infection, bleeding, pain, and skin injury were discussed. Particular attention was spent discussing thrombus extension and deep vein thrombosis as well as the possibility of pulmonary embolus and treatment with oral or injectable blood thinners. Procedure: The patient walked to the procedure room. All applicable staff donned appropriate apparel. A procedure timeout was performed to confirm correct patient, correct extremity, correct procedure, and correct room set-up including presence of all applicable supplies, devices, and drugs. A duplex ultrasound, performed by myself confirmed the location and incompetence of branch saphenous varicosities and their course was marked on the skin together with the dilated tributaries. The extent of treatment of the vein and the associated varicosities was determined through ultrasound mapping. The skin was prepped and then punctured with a butterfly needle and advanced under ultrasound guidance. The Varithenaregistered canister was activated and the canister was primed and purged as required in the instructions for use. Varithenaregistered was drawn into a sterile syringe. The following injections were made: 6 cc injected into and incompetent distal left great saphenous vein at the level of the ankle measuring up to 4 mm 5 cc injected into a 4 mm varicose vein distal left anterior lower leg in the region of the patient's venous stasis ulcerations 4 cc injected into a 6 mm varicose vein left medial distal thigh Varithenaregistered was slowly administered at 0.5-1.0 cc/second with close observation by ultrasound of its course in the vessels. Total volume utilized was: 15cc. Following administration of Varithenaregistered the leg was elevated and the patient was asked to repeatedly dorsiflex the ankle to limit flow of Varithenaregistered into perforating veins. Once appropriate spasm had been confirmed in the treated veins, the vascular catheter was removed from the leg and light pressure was applied over the puncture site for hemostasis. The common femoral and deep superficial veins were then evaluated for flow and compressibility prior to dressing placement. The lower extremity was kept elevated at 45 degrees above the horizontal and cording material was applied over the saphenous segments and tributaries to allow for eccentric compression over the target vessels including the targeted saphenous vein(s). A multilayer dressing was applied consisting of foam pads, coban and thigh-high 20-30 mm Hg compression elastic support hose were placed on the patient. The leg was lowered only after compression had been applied and the patient was immediately ambulatory. The patient ambulated 10 minutes under supervision and was without apparent concerns at time of release. Post-care instructions include advising patient to keep post-treatment bandages in place and dry for 48 hours, avoid extended periods of inactivity, avoid heavy exercise for one week, wear compression stockings on the treated leg continuously for two weeks, to walk daily for 10 minutes over the next month. The patient was instructed to take an anti-inflammatory medicine as needed and to follow up for color duplex scan of the Saphenous veins, the treated branch saphenous varicosities, the adjacent deep veins, and additional treatment within 7 days. PERSONNEL: Marito Damico RN Electronically authenticated by: DANIEL NAVA Date: 08/10/2023 13:57
== END 2023-08-10 13:00 | disposition home or self-care (01) ==
LOC: VC 12:59
PROVIDERS: PCP Radiology Diagnostic Radiology; Visit Provider Radiology Diagnostic Radiology
DX: I83.813 Varicose veins of bilateral lower extremities with pain (principal)
CPT/HCPCS: 36466

== ENCOUNTER 2023-08-17 12:21 | Outpatient (OUT) | payer MEDICARE, SELFPAY ==
--- NOTE | 2023-08-17 12:22 | VEIN_ITS ---
Patient Name: JASON PEARSON MR#: [id number] : 1945 Exam Date: 08/17/2023 Ordering Doctor: DR JESUS BOO M.D. RADIOLOGY REPORT PROCEDURE: FACILITY EST LMTD VEIN CENTER - OFFICE VISIT FOLLOW UP COMPARISON: [facility] EST LMTD, 07/18/2023. [facility] EST LMTD, 06/22/2023. PROGRESS NOTES: The patient reports no significant problems following micro foam chemical ablation of left leg incompetent varicose veins. The patient has worn his compression stocking and tried exercise. The patient did not oral analgesics. Physical exam demonstrates multiple thrombosed left leg varicose veins. Some mild hemosiderin staining was observed. The patient was cautioned on sun exposure is a relates to long-term hemosiderin staining. The patient has active venous stasis ulceration is completely sealed with only mild flake in. Significant reduction but not resolution of left lower leg skin thickening and erythema as the patient continues to heal. Review of the ultrasound performed the same day demonstrates occlusive thrombus extending throughout the treated left leg varicose veins. Residual varicose vein measuring 3.2 mm. No deep vein thrombus. The patient expressed a desire to proceed with treatment of right leg venous disease with intravenous laser ablation of the right great saphenous vein. VEIN/[facility] EST LMTD IMPRESSION: 1. Successful ablation of treated left leg incompetent varicose veins. 2. Persistent incompetent right great saphenous vein. PLAN: Intravenous laser ablation right great saphenous vein Nurse notes, history and physical were reviewed and confirmed, see attached forms. The nurse was present throughout the physical exam and consultation Dictated by: Jesus Boo MD on 08/17/2023 at 13:21 Approved by: Jesus Boo MD on 08/17/2023 at 13:22
--- NOTE | 2023-08-17 12:23 | VEIN_ITS ---
Patient Name: JASON PEARSON MR#: [id number] : 1945 Exam Date: 08/17/2023 Ordering Doctor: DR JESUS BOO M.D. RADIOLOGY REPORT PROCEDURE: VC EXT VENOUS LT LIMITED COMPARISON: VC EXT VENOUS LT LIMITED, 07/18/2023. VC EXT VENOUS LT LIMITED, 06/22/2023. INDICATIONS: Phlebitis of superficial veins of left lower extremity I80.02 TECHNIQUE: Lower extremity mckinney scale and Duplex Doppler evaluation of the deep venous system from the inguinal ligament through the calf veins. FINDINGS: REGION: Left lower extremity. THROMBI: Negative for DVT. Chemically induced thrombus in multiple varicose veins in left leg. COMPRESSIBILITY: Non-compressible segments corresponding to thrombus FLOW: Areas of no flow corresponding to thrombus OTHER: Patent varicose vein mid anterior lower leg measures 3.2mm. CONCLUSION: Post ablation occlusion of treated left leg incompetent varicose veins. Single residual incompetent varicose vein measuring 3.2 mm Dictated by: Jesus Boo MD on 08/17/2023 at 13:12 Approved by: Jesus Boo MD on 08/17/2023 at 13:12
--- OUTSIDE RECORDS SUMMARY | 2023-08-17 12:44 | XMS_ITS | CCD ---
Author Organization [facility] Care Team Providers Care Customer Management Specialist Name Role Phone OlvinSharonda Primary Care Physician Margaret, Mickey Gutiérrez Referring Unavailable Dolce, Mickey Gutiérrez Attending Unavailable Dolce, Mickey Gutiérrez Attending Unavailable Dolce, Mickey Gutiérrez Attending Unavailable Dolce, Mickey Gutiérrez Admitting Unavailable Dolce, Mickey Gutiérrez Referring Unavailable Dolce, Mickey Gutiérrez Attending Unavailable Dolce, Mickey Gutiérrez Attending Unavailable Dolce, Mickey Gutiérrez Attending Unavailable Dolce, Mickey Gutiérrez Attending Unavailable Dolce, Mickey Gutiérrez Attending Unavailable Dolce, Mickey Gutiérrez Attending Unavailable Dolce, Mickey Gutiérrez Attending Unavailable ZAHLERMARY Attending Unavailable Medications Current [...] Range Facility Outside Recordson 03-08-2023 Outside Records 149.45.122.15. [id number] 288#1.00TIFF [facility] Nursing Note - Woundon 01-14 Nursing Note - Wound 170.71.358.945.2066 [id number] 407#2.00CD:127 [facility] Consent for Treatmenton 12-31 Consent for Treatment 159.140.128.36.202 3 [id number] DB#1.00CD:127 [facility] Multi-Wound Charton 01-12-20 23 Multi-Wound Chart 170.71.590.932.4710 [id number] 334#1.00CD:127 [facility] Nursing Assessment - Woundon 01-11-2023 Nursing Assessment - Wound 170.71.256.558.6312 [id number] 744#1.00CD:127 [facility] Physician Orderon 01-11-2023 Physician Order 170.71.982.616.9146 [id number] 140#1.00CD:127 [facility] Progress Note - Woundon 12-31 Progress Note - Wound 170.71.121.117.202 3 [id number] 251#1.00CD:127 [facility] Consent for Procedure/Surger yon 01-04-2023 Consent for Procedure/Surgery 149.45.122.15.43733 [id number] 903#1.00CD:127 [facility] Consent for Treatmenton Consent for Treatment 159.140.128.36.202 3 [id number] B4#1.00CD:127 [facility] Physician Orderon 01-04-2023 Physician Order [id number] 539#1.00CD:127 [facility] Progress Note - Woundon Progress Note - Wound 170.71.121.117.202 3 [id number] 143#1.00CD:127 [facility] Progress Note - Woundon 12-02 Progress Note - Wound 170.71.121.117.202 3 [id number] 392#2.00CD:127 [facility] Consent for Treatmenton 12-01 Consent for Treatment 159.140.128.34.202 3 [id number] 55#1.00CD:127 [facility] Multi-Wound Charton 12-29-19 Multi-Wound Chart 170.71.439.220.8953 [id number] 285#1.00CD:127 [facility] Nursing Assessment - Woundon 12-28-2022 Nursing Assessment - Wound 170.71.281.131.8283 [id number] 632#1.00CD:127 [facility] Nursing Note - Woundon 12-28 Nursing Note - Wound 170.71.986.251.0358 [id number] 281#1.00CD:127 [facility] Physician Orderon 12-28-2022 Physician Order [id number] 330#1.00CD:127 [facility] Procedure - Woundon 12-29-19 Procedure - Wound 170.71.235.345.8694 [id number] 179#1.00CD:127 [facility] Consent for Treatmenton 12-01 Consent for Treatment 159.140.128.36.202 3 [id number] 4C#1.00CD:127 [facility] Multi-Wound Charton 12-22-19 Multi-Wound Chart 170.71.053.790.9623 [id number] 612#1.00CD:127 [facility] Nursing Assessment - Woundon 12-21-2022 Nursing Assessment - Wound 170.71.229.853.9123 [id number] 169#1.00CD:127 [facility] Nursing Note - Woundon 12-21 Nursing Note - Wound 170.71.346.267.7989 [id number] 553#1.00CD:127 [facility] Physician Orderon 12-21-2022 Physician Order [id number] [id number] 579#1.00CD:127 [facility] Procedure - Woundon 12-22-19 Procedure - Wound 170.71.962.791.3674 [id number] 549#1.00CD:127 [facility] Progress Note - Woundon 12-01 Progress Note - Wound 170.71.121.117.202 3 [id number] 894#1.00CD:127 [facility] Procedure - Woundon 12-18-19 Procedure - Wound 170.71.947.002.1436 [id number] 901#2.00CD:127 [facility] Nursing Note - Woundon 12-15 Nursing Note - Wound 170.71.819.649.3559 [id number] 779#2.00CD:127 [facility] Consent for Treatmenton 11-30 Consent for Treatment 159.140.128.34.202 3 [id number] 5A#1.00CD:127 [facility] Multi-Wound Charton 12-15-19 Multi-Wound Chart 170.71.175.650.8850 [id number] 645#1.00CD:127 [facility] Nursing Assessment - Woundon 12-14-2022 Nursing Assessment - Wound 170.71.433.075.2834 [id number] 942#1.00CD:127 [facility] Consent for Procedure/Surger yon 12-07-2022 Consent for Procedure/Surgery 149.45.122.15.23527 [id number] 860#1.00CD:127 [facility] Consent for Treatmenton Consent for Treatment 159.140.128.34.202 3 [id number] D1#1.00CD:127 [facility] Multi-Wound Charton 12-08-19 Multi-Wound Chart 170.71.359.672.8788 [id number] 913#1.00CD:127 [facility] Nursing Assessment - Woundon 12-07-2022 Nursing Assessment - Wound 170.71.862.799.7841 [id number] 164#1.00CD:127 [facility] Nursing Note - Woundon 12-07 Nursing Note - Wound 170.71.475.338.7335 [id number] 674#1.00CD:127 [facility] Physician Orderon 12-07-2022 Physician Order 170.71.984.889.4716 [id number] 814#1.00CD:127 [facility] Procedure - Woundon 12-08-19 Procedure - Wound 170.71.103.575.8554 [id number] 670#1.00CD:127 [facility] Progress Note - Woundon Progress Note - Wound 170.71.121.117.202 3 [id number] 522#1.00CD:127 [facility] Multi-Wound Charton 12-01-19 Multi-Wound Chart 170.71.636.045.0523 [id number] 416#1.00CD:127 [facility] Nursing Note - Woundon 11-30 Nursing Note - Wound 170.71.080.957.7179 [id number] 741#1.00CD:127 [facility] Consent for Treatmenton 11-01 Consent for Treatment 159.140.128.36.202 3 [id number] 3B#1.00CD:127 [facility] Insurance Correspondenceon 0 11-29-2022 Insurance Correspondence 170.71.121.87.85081 [id number] 803#1.00CD:127 [facility] Physician Orderon 11-29-2022 Physician Order 170.71.574.043.1745 [id number] 461#1.00CD:127 [facility] Procedure - Woundon 11-30-19 Procedure - Wound 170.71.478.388.4065 [id number] 212#1.00CD:127 [facility] Nursing Note - Woundon 11-24 Nursing Note - Wound 170.71.614.612.7229 [id number] 966#2.00CD:127 [facility] Consent for Treatmenton 10-31 Consent for Treatment 159.140.128.34.202 3 [id number] F7#1.00CD:127 [facility] Multi-Wound Charton 11-24-19 Multi-Wound Chart 170.71.774.797.6364 [id number] 420#1.00CD:127 [facility] Nursing Assessment - Woundon 11-23-2022 Nursing Assessment - Wound 170.71.876.535.0903 [id number] 442#1.00CD:127 [facility] Nursing Note - Woundon 11-23 Nursing Note - Wound 170.71.382.793.6630 [id number] 795#1.00CD:127 [facility] Physician Orderon 11-23-2022 Physician Order 170.71.616.738.1588 [id number] 762#1.00CD:127 [facility] Procedure - Woundon 11-24-19 Procedure - Wound 170.71.455.580.6788 [id number] 707#1.00CD:127 [facility] Progress Note - Woundon - Progress Note - Wound 170.71.121.117.202 3 [id number] 390#1.00CD:127 [facility] Consent for Procedure/Surger yon 11-16-2022 Consent for Procedure/Surgery 149.45.122.13.71609 [id number] 490#1.00CD:127 [facility] Consent for Treatmenton 10-30 Consent for Treatment 159.140.128.34.202 3 [id number] E7#1.00CD:127 [facility] Consent for Treatment 159.140.128.36.202 3 [id number] 86#1.00CD:127 [facility] Consent to Photographon 10-30 Consent to Photograph 149.45.122.13 0 [id number] 407#1.00CD:127 [facility] Correspondence - Woundon Correspondence - Wound 149.45.122.13.01939 [id number] 980#1.00CD:127 [facility] Correspondence - Wound 149.45.122.13.06733 [id number] 831#1.00CD:127 [facility] Multi-Wound Charton 11-17-19 Multi-Wound Chart 170.71.782.883.5775 [id number] 692#1.00CD:127 [facility] Nursing Assessment - Woundon 11-16-2022 Nursing Assessment - Wound 170.71.912.504.2223 [id number] 509#1.00CD:127 [facility] Nursing Note - Woundon 11-16 Nursing Note - Wound 149.45.122.13. [id number] 187#1.00CD:127 Normal [facility] Physician Orderon 11-16-2022 Physician Order 170.71.621.671.9047 [id number] 726#1.00CD:127 [facility] Physician Order [id number] C1#1.00CD:127 [facility] Procedure - Woundon 11-17-19 Procedure - Wound 170.71.421.951.6925 [id number] 478#1.00CD:127 [facility] Progress Note - Woundon 10-30 Progress Note - Wound 170.71.121.117. [id number] 242#1.00CD:127 [facility] US LE Venous Duplex Lefton 0 [...] V. Transcribed by: RACHEL Technologist: QUE [facility] Reference Laboratory Testing Ordered By: [facility] [employer] on 05-20-2021 SARS-CoV-2 (COVID-19) RNA DALILA+probe Ql (Resp) Not detected Invalid Interpretation Code Not Detected [facility] [employer] Comment on above: Result Comment: This nucleic acid amplification test was developed and its performance characteristics determined by [employer]. Nucleic acid amplification tests include RT-PCR and [...] detected) result in this assay. Performed at: [address] [id number] PhD Rosi Peacock Encounters Encounter Date Encounter Type Care Provider Facility Start: 05-23-2023 End: 05-23-2023 ambulatory MARY ARMENDARIZ Not Available Start: 01-11-2023 End: 01-12-2023 ambulatory Mickey Robles Facility:[facility] Start: 01-11-2023 End: 01-11-2023 Patient encounter procedure Mickey Robles [facility] Start: 01-04-2023 End: 01-05-2023 ambulatory Mickey Brock Dolce Facility:[facility] Start: 01-04-2023 End: 01-04-2023 Patient encounter procedure Mickey Robles [facility] Start: 12-28-2022 End: 12-29-2022 ambulatory Mickey D Dolce Facility:[facility] Start: 12-21-2022 End: 12-22-2022 ambulatory Mickey D Dolce Facility:[facility] Start: 12-14-2022 End: 12-15-2022 ambulatory Mickey D Dolce Facility:[facility] Start: 12-14-2022 End: 12-14-2022 Patient encounter procedure Mickey Robles [facility] Start: 12-07-2022 End: 12-08-2022 ambulatory Mickey Robles Facility:[facility] Start: 12-07-2022 End: 12-07-2022 Patient encounter procedure Mickey Robles [facility] Start: 11-29-2022 End: 11-30-2022 ambulatory Mickey Robles Facility:[facility] Start: 11-29-2022 End: 11-29-2022 Patient encounter procedure Mickey Robles [facility] Start: 11-23-2022 End: 11-24-2022 ambulatory Mickey Robles Facility:[facility] Start: 11-16-2022 End: 11-17-2022 ambulatory Mickey Robles Facility:[facility] Start: 11-16-2022 End: 11-16-2022 Patient encounter procedure Mickey Robles [facility] Start: 11-16-2022 End: 11-17-2022 ambulatory Mickey Robles Facility:[facility] Start: 11-16-2022 End: 11-16-2022 Patient encounter procedure Mickey Robles [facility] Start: 05-20-2021 End: 08-18-2021 Patient encounter procedure Sharonda Bah [facility] Procedures Date Procedure Procedure Detail Performing Clinician [...] EYE Payers Date Payer Category Payer Unknown [id number] 2020 Unknown [id number] 1945 Unknown [id number] 2.16.8 [id number] 1945 Unknown [id number] 2.16.8 40.1.509806.3.579.2.727 1945 Unknown [id number] 2.16.8 40.1.145801.3.579.2.727 1945 Unknown [id number] 2.16.8 40.1.993022.3.579.2.727 1945 Unknown [id number] 2.16.8 40.1.613603.3.579.2.727 1945 Unknown [id number] 2.16.8 40.1.049616.3.579.2.727 1945 Unknown [id number] 2.16.8 40.1.873712.3.579.2.727 1945 Unknown [id number] 2.16.8 40.1.441937.3.579.2.727 1945 Unknown [id number] 2.16.8 40.1.240496.3.579.2.727 1945 Unknown [id number] 2.16.8 40.1.926319.3.579.2.727 1945 Unknown [id number] 2.16.84 0.1.539278.3.579.2.1259 Social History Date Type Detail Facility Tobacco smoking status [facility] Sex Assigned At Male [facility] Tobacco smoking status No Smoking Status Entered [facility] Medical Equipment Procedure Code Equipment Code Equipment [...] Locations R1: This test was performed at: [facility], [address] [place] [address], [address] [place] [address], [facility] Comment on above: Performed By: #### [id number] ####[place] [address] Evaluation + Plan note Note Date & Type Note Facility Evaluation + Plan note No data available for this section [facility] Evaluation + Plan note Note Date & Type Note Facility Evaluation + Plan note Future Appointments Appointment Date:11/23/2022 02:00:00 PM Scheduled Provider:Mickey Robles DPM Location[facility] Appointment Type: Follow Up Visit (FT) [facility] Evaluation + Plan note Note Date & Type Note Facility Evaluation + Plan note Future Appointments Appointment Date:11/23/2022 02:00:00 PM Scheduled Provider:Mickey Robles DPM Location[facility] Appointment Type: Follow Up Visit (FT) Diagnostic Tests PendingWound Culture 11/16/22 [facility] Evaluation + Plan note Note Date & Type Note Facility Evaluation + Plan note Future Appointments Appointment Date:12/07/2022 02:00:00 PM Scheduled Provider:Mickey Robles DPM Location[facility] Appointment Type:WC Follow Up Visit (FT) Appointment Date:12/07/2022 02:15:00 PM Scheduled Provider:Mickey Robles DPM Location[facility] Appointment Type:WC Follow Up Visit (FT) [facility] Evaluation + Plan note Note Date & Type Note Facility Evaluation + Plan note Future Appointments Appointment Date:12/13/2022 09:30:00 AM Scheduled Provider: Location:[facility] Appointment Type:WC Assessment (FT) Appointment Date:12/21/2022 02:30:00 PM Scheduled Provider:Mickey Robles DPM Location:[facility] Appointment Type:WC Follow Up Visit (FT) [facility] Evaluation + Plan note Note Date & Type Note Facility Evaluation + Plan note Future Appointments Appointment Date:12/21/2022 02:30:00 PM Scheduled Provider:Mickey Robles DPM Location[facility] Appointment Type:WC Follow Up Visit (FT) [facility] Evaluation + Plan note Note Date & Type Note Facility Evaluation + Plan note Future Appointments Appointment Date:01/11/2023 03:00:00 PM Scheduled Provider:Mickey Robles DPM Location[facility] Appointment Type:WC Follow Up Visit (FT) [facility] Hospital Discharge instructions Note Date & Type Note Facility Hospital Discharge instructions No data available for this section [facility] Progress note Note Date & Type Note Facility Progress note No data available for this section [facility] Summary Purpose Family History No Family History Records FoundNo Family History Records Found Advance Directives No Advanced Directives Records FoundNo Advanced Directives Records Found Additional Source Comments Patient Care team informatio n (unrecognized section and content) Personnel Name: Sharonda Bah MD Address: Address: [address] [place] [address] Personnel Name: Sharonda Bah MD Address: Address: [address] [place] [address] Personnel Name: Sharonda Bah MD Address: Address: [address] [place] [address] Personnel Name: Sharonda Bah MD Address: Address: [address] [place] [address] [place] [address]- [place] Personnel Name: Sharonda Bah MD Address: Address: [address] [place] [address] Personnel Name: Sharonda Bah MD Address: Address: [address] [facility]. [address] [place] [address] Personnel Name: Sharonda Bah MD Address: Address: [address] [place] [address]. [address] [place] [address] (unrecognized sect ion and content) No Status Records FoundNo Status Records Found INFORMATION SOURCE (unrecogn ized section and content) DATE CREATED AUTHOR 03/09/2023 [facility] DATE CREATED AUTHOR AUTHOREllis MOLINA 05/23/2023 [facility] FOR RECORDS PERTAINING TO PATIENTS WHO ARE [...] BE BASED ON THE PRIMARY CLINICAL RECORDS. [employer] provides no warranty or guarantee of the accuracy or completeness of information in this document.
== END 2023-08-17 12:22 | disposition home or self-care (01) ==
LOC: VC 12:21
PROVIDERS: PCP Radiology Diagnostic Radiology; Visit Provider Radiology Diagnostic Radiology
DX: I80.02 Phlebitis and thrombophlebitis of superficial vessels of left lower extremity (principal)
CPT/HCPCS: 93971; G0463